=== PATIENT | male | born 1965 | race Caucasian/White ===

== ENCOUNTER → 2019-05-27 | Outpatient (CLI) | payer OTHER ==
[~2019-05-27] MED LIST: ACET1TAB43 PO; ACHD5005 PO; AMOX-355 PO; AMOX1TAB12 PO; AMOX500C2 PO; CELE-63 PO; CITA20TA9 PO; CLIN300C3 PO; CYCL10TA9; CYCL10TA9 PO; DICL75TA2; DICL75TA2 PO; DOCU100C37 PO; GABA-486; GABA-486 PO; GBPN600T PO; HYDR-34 PO; HYDR-700 PO; HYDR-757 PO; LORA10TA7 PO; METR-145 PO; METR500T PO; MULT1TAB69 PO; MUPI22OI2 TOP; OXYC-465 PO; PANT40TA3 PO; SULF1TAB35 PO; TOBR5DRO2 RIGHT EAR
--- NOTE | 2019-05-27 13:54 | Diagnostic Imaging Report ---
PROCEDURE: MRI lumbar spine. TECHNIQUE: Multiplanar, multisequence MRI of the lumbar spine was performed without contrast. INDICATION: Low back pain and right hip pain. Correlation is made with prior MRI of the lumbar spine from 02/05/2010. FINDINGS: There is straightening of the normal lumbar lordotic curvature. Minimal retrolisthesis of L3 on L4 and L4 on L5 is noted. Vertebral body heights are maintained. No acute compression fracture is identified. Significant degenerative disc disease is identified at the L3-L4 and L5-S1 levels. This has significantly progressed at L3-L4 since prior study from 2009. L3-L4 demonstrate significant Modic changes in the adjacent endplates. The conus is unremarkable at the L1-L2 level. T12-L1: Central canal is patent. Neural foramina are patent. L1-L2: Central canal is patent. There appears to be mild bilateral neural foraminal narrowing due to far lateral broad-based disc/osteophyte complex. L2-L3: Central canal is patent. Broad-based disc/osteophyte complex does result in [id number] bilateral neural foraminal narrowing. L3-L4: Broad-based disc/osteophyte complex indents the ventral thecal sac. There is ligamentous thickening. This results in fairly significant central canal stenosis. There is severe bilateral lateral recess stenosis. There is also severe left and moderate right neural foraminal stenosis. L4-L5: Broad-based disc/osteophyte complex flattens the ventral thecal sac resulting in moderate central canal stenosis. There is severe right and moderate left lateral recess stenosis. There is severe right and moderate left neural foraminal stenosis. Right-sided neural foraminal narrowing appears to be owing to broad-based disc/osteophyte complex. L5-S1: Broad-based disc/osteophyte complex indents the ventral thecal sac. Central canal is patent. There is severe bilateral lateral recess stenosis. There is also severe bilateral neural foraminal stenosis. Paraspinous tissues are unremarkable. IMPRESSION: Progression of lumbar spondylosis since 2009. Multilevel central canal, lateral recess and neural foraminal stenosis is identified, described level by level above. Dictated by: Dictated on workstation # [id number]
--- NOTE | 2019-05-27 16:42 | Diagnostic Imaging Report ---
PROCEDURE: MR imaging cervical spine without contrast. TECHNIQUE: Multiplanar, multisequence MR imaging of the cervical spine was performed without contrast. INDICATION: Neck pain. FINDINGS: The cervical spine is grossly normal. Vertebral body heights are well maintained. There is no marrow signal intensity abnormality. The prevertebral soft tissues are within normal limits. Posterior fossa is unremarkable. The visualized portions of the spinal cord are normal in signal intensity and morphology. At C2-C3 there is mild left uncovertebral joint hypertrophy with mild left neural foraminal encroachment. At C3-C4 there is some annular bulging and bilateral uncovertebral joint hypertrophy, right greater than left. There is mild spinal stenosis. There is moderate to severe right and [id number] left neural foraminal encroachment. At C4-C5 annular bulging and mild bilateral uncovertebral hypertrophy. There is slight effacement of the intrathecal sac and mild bilateral neural foraminal encroachment. At C5-C6 there is annular bulging and right uncovertebral hypertrophy. There is slight effacement of the intrathecal sac with mild to moderate right neural foraminal encroachment. At C6-C7 there is broad-based annular bulging and mild bilateral uncovertebral hypertrophy. There is mild spinal stenosis and mild bilateral neuroforaminal encroachment. At C7-T1 there is some annular bulging with slight effacement of the intrathecal sac and mild bilateral foraminal encroachment. IMPRESSION: Mild diffuse cervical spondylosis and degenerative disc disease as detailed above Dictated by: Dictated on workstation # [id number]
== END ==
LOC: RAD 12:12
PROVIDERS: ATTEND Nurse Practitioner
DX: M48.07 Spinal stenosis, lumbosacral region (principal); M48.03 Spinal stenosis, cervicothoracic region; M47.816 Spondylosis without myelopathy or radiculopathy, lumbar region; M51.17 Intervertebral disc disorders with radiculopathy, lumbosacral region; M50.13 Cervical disc disorder with radiculopathy, cervicothoracic region
CPT/HCPCS: 72141; 72148

== ENCOUNTER 2019-07-08 17:03 | Inpatient (IN) | payer OTHER ==
[~2019-07-08] VITALS: Ht 182.9 cm; Wt 71.1 kg
[2019-07-08 17:24] VITALS: BP 117/76
[2019-07-08] MEDS ORDERED: CATHETER FLUSH 10 ML SYR IV PRN (17:30)
[2019-07-08] MEDS: ENOXAPARIN 40 MG/0.4 ML (LOVENOX) SYR SC SCH (17:55)
[2019-07-08] MEDS: NS IV 1000 ML 1,000 ML IV SCH (17:56)
[2019-07-08 18:00] LABS: BASOPHILS # (AUTO) 0.1 10^3/uL (0.0-0.1); BASOPHILS % (AUTO) 2 % (0-10); EOSINOPHILS # (AUTO) 0.1 10^3/uL (0.0-0.3); EOSINOPHILS % (AUTO) 1 % (0-10); HEMATOCRIT 38 % (40-54); HEMOGLOBIN 13.7 G/DL (13.3-17.7); LYMPHOCYTES # (AUTO) 1.7 X 10^3 (1.0-4.0); LYMPHOCYTES % (AUTO) 23 % (12-44); MEAN CORPUSCULAR HEMOGLOBIN 32 PG (25-34); MEAN CORPUSCULAR HGB CONC 36 G/DL (32-36); MEAN CORPUSCULAR VOLUME 90 FL (80-99); MEAN PLATELET VOLUME 11.4 FL (7.4-10.4); MONOCYTES # (AUTO) 0.7 X 10^3 (0.0-1.0); MONOCYTES % (AUTO) 9 % (0-12); NEUTROPHILS # (AUTO) 4.9 X 10^3 (1.8-7.8); NEUTROPHILS % (AUTO) 66 % (42-75); PLATELET COUNT 88 10^3/uL (130-400); RED CELL DISTRIBUTION WIDTH 13.7 % (10.0-14.5); WHITE BLOOD COUNT 7.5 10^3/uL (4.3-11.0)
[2019-07-08 18:10] LABS: ALBUMIN 3.8 GM/DL (3.2-4.5); CHLORIDE 103 MMOL/L (98-107); POTASSIUM 4.3 MMOL/L (3.6-5.0); SODIUM 135 MMOL/L (135-145)
[2019-07-08 18:12] LABS: CALCIUM 8.4 MG/DL (8.5-10.1)
[2019-07-08 18:13] LABS: GLUCOSE 109 MG/DL (70-105); TOTAL PROTEIN 6.6 GM/DL (6.4-8.2)
[2019-07-08 18:14] LABS: CARBON DIOXIDE 20 MMOL/L (21-32)
[2019-07-08 18:15] LABS: BILIRUBIN,TOTAL 0.4 MG/DL (0.1-1.0)
[2019-07-08 18:16] LABS: ALKALINE PHOSPHATASE 216 U/L (40-136); CREATININE SERUM 1.22 MG/DL (0.60-1.30); GFR ESTIMATED > 60
[2019-07-08 18:17] LABS: BUN/CREATININE RATIO 10
[2019-07-08 18:19] LABS: ALANINE AMINOTRANSFERASE 120 U/L (0-55); CREATINE KINASE 45 U/L (30-200); ERYTHROCYTE SEDIMENTATION RATE 4 MM/HR (0-30)
[2019-07-08] MEDS ORDERED: PREG50CA2 PO (18:26)
[2019-07-08] MEDS ORDERED: guaiFENesin/CODEINE (ROBITUSSIN AC) 10ML UDC PO PRN (18:30)
[2019-07-08] MEDS ORDERED: CALCIUM CARBONATE 500 MG (TUMS) TAB.CHEW PO PRN (18:30)
[2019-07-08] MEDS ORDERED: MELATONIN 3 MG TABLET PO PRN (18:30)
[2019-07-08] MEDS ORDERED: DOCUSATE SODIUM 100 MG (COLACE) CAP PO PRN (18:30)
[2019-07-08] MEDS ORDERED: ONDANSETRON 4 MG (ZOFRAN) ORAL DISSOLVE TAB PO PRN (18:30)
[2019-07-08] MEDS ORDERED: LOPERAMIDE 2 MG (IMODIUM) TABLET PO PRN (18:30)
[2019-07-08] MEDS ORDERED: diphenhydrAMINE 25 MG TAB (BENADRYL) PO PRN (18:30)
[2019-07-08] MEDS: HYDROcodone/APAP 5 MG/325 MG (LORTAB) TAB PO PRN (18:59)
[2019-07-08] MEDS: cefTRIAXone FOR IV USE 1,000 MG in WATER (STERILE) FOR INJECTION 10 ML IV SCH (19:07)
[2019-07-08] MEDS: AZITHROMYCIN INJECTION 500 MG in NS (IVPB) 250 ML IV SCH (19:07)
--- NOTE | 2019-07-08 19:18 | Diagnostic Imaging Report ---
INDICATION: Fever, chills, and cough. Comparison made to prior study from 12/09/2014. FINDINGS: The diaphragms are flattened which suggests air trapping. No focal infiltrate demonstrated. There is no effusion. There is no pneumothorax. Heart size and mediastinal contours appear appropriate and pulmonary vascularity appears normal. No acute or suspicious osseous abnormality is demonstrated. IMPRESSION: 1. Diaphragmatic flattening suggests air trapping. Correlate for history of COPD. 2. No acute superimposed cardiopulmonary process evident. Dictated by: Dictated on workstation # [id number]
[2019-07-08] MEDS: ACETAMINOPHEN 500 MG TAB (TYLENOL) PO PRN (20:06)
[2019-07-08 20:11] VITALS: BP 102/62
[2019-07-08] MEDS: SENNA W/DOCUSATE (SENOKOT S) TABLET PO SCH (21:00)
[2019-07-08 21:06] VITALS: BP 102/62
[2019-07-08] MEDS ORDERED: RT-ALBUTEROL/IPRATROPIUM 3 ML (DUONEB) VIAL INH PRN (21:15)
[2019-07-09 00:01] VITALS: BP 100/62
[2019-07-09 00:09] LABS: BILIRUBIN,URINE NEGATIVE (NEGATIVE); CLARITY,URINE CLEAR; COLOR,URINE YELLOW; GLUCOSE, URINE (UA) NEGATIVE (NEGATIVE); KETONES,URINE 1+ (NEGATIVE); LEUKOCYTE ESTERASE ,URINE NEGATIVE (NEGATIVE); NITRITE,URINE NEGATIVE (NEGATIVE); PROTEIN,URINE TRACE (NEGATIVE)
[2019-07-09 00:16] LABS: BACTERIA,URINE NEGATIVE /HPF; SQUAMOUS EPITHELIAL CELL,UR 0-2 /HPF
[2019-07-09] MEDS: NS IV 1000 ML 1,000 ML IV SCH ×4 (02:07→20:01)
[2019-07-09 03:35] VITALS: BP 95/56
[2019-07-09] MEDS: ACETAMINOPHEN 500 MG TAB (TYLENOL) PO PRN ×2 (03:41→16:28)
[2019-07-09] MEDS: HYDROcodone/APAP 5 MG/325 MG (LORTAB) TAB PO PRN ×3 (03:41→20:02)
[2019-07-09 05:22] LABS: BASOPHILS # (AUTO) 0.2 10^3/uL (0.0-0.1); BASOPHILS % (AUTO) 3 % (0-10); EOSINOPHILS # (AUTO) 0.1 10^3/uL (0.0-0.3); EOSINOPHILS % (AUTO) 1 % (0-10); HEMATOCRIT 38 % (40-54); HEMOGLOBIN 13.5 G/DL (13.3-17.7); LYMPHOCYTES # (AUTO) 2.7 X 10^3 (1.0-4.0); LYMPHOCYTES % (AUTO) 34 % (12-44); MEAN CORPUSCULAR HEMOGLOBIN 32 PG (25-34); MEAN CORPUSCULAR HGB CONC 36 G/DL (32-36); MEAN CORPUSCULAR VOLUME 91 FL (80-99); MEAN PLATELET VOLUME 10.9 FL (7.4-10.4); MONOCYTES # (AUTO) 0.9 X 10^3 (0.0-1.0); MONOCYTES % (AUTO) 11 % (0-12); NEUTROPHILS # (AUTO) 4.1 X 10^3 (1.8-7.8); NEUTROPHILS % (AUTO) 52 % (42-75); PLATELET COUNT 78 10^3/uL (130-400); WHITE BLOOD COUNT 7.9 10^3/uL (4.3-11.0)
[2019-07-09 05:33] LABS: ALBUMIN 3.5 GM/DL (3.2-4.5); CHLORIDE 108 MMOL/L (98-107); POTASSIUM 4.3 MMOL/L (3.6-5.0); SODIUM 137 MMOL/L (135-145)
[2019-07-09 05:35] LABS: GLUCOSE 109 MG/DL (70-105)
[2019-07-09 05:37] LABS: BILIRUBIN,TOTAL 0.3 MG/DL (0.1-1.0); CARBON DIOXIDE 19 MMOL/L (21-32)
[2019-07-09 05:39] LABS: ALKALINE PHOSPHATASE 196 U/L (40-136); CREATININE SERUM 1.09 MG/DL (0.60-1.30); GFR ESTIMATED > 60
[2019-07-09 05:40] LABS: BUN/CREATININE RATIO 12
[2019-07-09 05:42] LABS: ALANINE AMINOTRANSFERASE 114 U/L (0-55)
[2019-07-09] MEDS: SENNA W/DOCUSATE (SENOKOT S) TABLET PO SCH ×2 (08:05→20:01)
[2019-07-09 08:10] VITALS: BP 111/66
--- NOTE | 2019-07-09 09:55 | Diagnostic Imaging Report ---
INDICATION: Dehydration, fever. TECHNIQUE: Two view chest 9:28 AM CORRELATION STUDY: None FINDINGS: The heart size, mediastinal configuration and pulmonary vasculature are within normal limits. The lungs are clear with no consolidating infiltrate. There is no significant pleural effusion or pneumothorax. Visualized osseous structures are unremarkable. IMPRESSION: 1. Negative for acute abnormality of the chest. Dictated by: Dictated on workstation # [id number]
[2019-07-09] MEDS: ONDANSETRON 4 MG/2 ML (SDV) Z0FRAN IVP PRN (11:49)
[2019-07-09 12:12] VITALS: BP 169/82
[2019-07-09] MEDS ORDERED: PROMETHAZINE INJ 25 MG/ML (PHENERGAN) AMP IM ONE (12:45)
--- NOTE | 2019-07-09 13:05 | Consultation - Surgery ---
History of Present Illness History of Present Illness Patient Consulted On(lavern/time) 07/09/19 13:04 Date Seen by Provider: July 09, 2019 Time Seen by Provider: 13:04 History of Present Illness Consult requested by Dr. Benoit for abdominal pain. Patient is a 54-year-old male who presented with several days of body ache headache and neck pain and nausea and vomiting. Patient states this is continued to worsen. Recent has abdominal pain in the epigastric region no radiation of pain. Patient has history of ulcers he states. Hasn't had any issues for about 4 years. Moderate to severe pain. He recently is taking ibuprofen but trying to limit. He has had cough and fever. Allergies and Home Medications Allergies Coded Allergies: No Known Drug Allergies (Unverified , 08/11/14) Home Medications Celecoxib 200 Mg Capsule, 200 MG PO DAILY, (Reported) Citalopram Hydrobromide 20 Mg Tablet, 40 MG PO DAILY, (Reported) TAKES 2 (20MG) TABLETS Hydroxyzine HCl 25 Mg Tablet, 25-50 MG PO QID PRN for ANXIETY, (Reported) Multivitamin 1 Each Tablet, 1 TAB PO DAILY, (Reported) Pregabalin 50 Mg Capsule, 50 MG PO BID Prescribed by: MIKE SHOEMAKER on 07/08/19 9626 Patient Home Medication List Home Medication List Reviewed: Yes Past Azvmhzf-Vhpngz-Bzagci Hx Patient Social History Alcohol Use: Denies Use Recreational Drug Use: Yes Drug of Choice: marijuana Type Used: Cigarettes Recent Foreign Travel: No Contact w/Someone Who Travel: No Recent Infectious Disease Expo: No Recent Hopitalizations: No Physical Abuse Screen: No Sexual Abuse: No Immunizations Up To Date Tetanus Booster (TDap): Less than 5yrs PED Vaccines UTD: No Date of Influenza Vaccine: Dec 06, 2014 Seasonal Allergies Seasonal Allergies: Yes Surgeries History of Surgeries: Yes (RIGHT WRIST ORTHOS SURGERY AND LEFT LEG CUCA) Surgeries: Angioplasty, Orthopedic Respiratory History of Respiratory Disorde: Yes Respiratory Disorders: COPD Cardiovascular History of Cardiac Disorders: No Neurological Neurological Disorders: Neuropathy Reproductive System Hx Reproductive Disorders: No Sexually Transmitted Disease: No HIV/AIDS: No Genitourinary History of Genitourinary Disor: Yes Genitourinary Disorders: Kidney Stones Gastrointestinal History of Gastrointestinal Di: Yes (5 YEARS AGO GI BLEED) Gastrointestinal Disorders: Gastrointestinal Bleed, Ulcer Musculoskeletal Musculoskeletal Disorders: Arthritis, Chronic Back Pain Endocrine History of Endocrine Disorders: No HEENT History of HEENT Disorders: No (BLIND IN RIGHT EYE) Loss of Vision: Right Hearing Impairment: Denies Cancer History of Cancer: No Psychosocial History of Psychiatric Problem: Yes Behavioral Health Disorders: Anxiety, PTSD, Depression Integumentary History of Skin or Integumenta: No Blood Transfusions History of Blood Disorders: No Adverse Reaction to a Blood Tr: No Family Medical History Significant Family History: No Pertinent Family Hx Family Medial History: Arthritis 19 MOTHER Asthma G8 BROTHER Cancer of mouth 19 FATHER Cardiovascular disease 19 FATHER Diabetes mellitus 19 FATHER G8 BROTHER Myocardial infarction 19 FATHER Review of Systems-General Constitutional: see HPI, fever Respiratory: cough Cardiovascular: see HPI; No chest pain Gastrointestinal: abdominal pain Genitourinary: No decreased output, No discharge Musculoskeletal: back pain Skin: No change in color, No change in hair/nails Psychiatric/Neurological: Denies Anxiety, Denies Depressed, Denies Emotional Problems Physical Exam-General Problems Physical Exam Vital Signs Vital Signs - First Documented 07/08/19 07/08/19 17:24 21:06 Temp 37.8 Pulse 86 Resp 16 B/P (MAP) 117/76 Pulse Ox 97 O2 Delivery Room Air FiO2 21 Capillary Refill : Less Than 3 Seconds General Appearance: mild distress, other (PARACENTESIS PROCEDURE NOTE) HEENT: PERRL/EOMI, normal ENT inspection Neck: full range of motion, supple Respiratory: chest non-tender, no respiratory distress, no accessory muscle use Cardiovascular: regular rate, rhythm Gastrointestinal: soft, tenderness (Epigastric) Rectal: deferred Back: no CVA tenderness Extremities: non-tender, normal inspection 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, no motor/sensory deficits, alert, normal mood/affect, oriented x 3 Skin: normal color, warm/dry Lymphatic: no adenopathy Data Review Labs Laboratory Tests 07/08/19 17:35: White Blood Count 7.5, Red Blood Count 4.25L, Hemoglobin 13.7, Hematocrit 38L, Mean Corpuscular Volume 90, Mean Corpuscular Hemoglobin 32, Mean Corpuscular Hemoglobin Concent 36, Red Cell Distribution Width 13.7, Platelet Count 88L, Mean Platelet Volume 11.4H, Neutrophils (%) (Auto) 66, Lymphocytes (%) (Auto) 23, Monocytes (%) (Auto) 9, Eosinophils (%) (Auto) 1, Basophils (%) (Auto) 2, Neutrophils # (Auto) 4.9, Lymphocytes # (Auto) 1.7, Monocytes # (Auto) 0.7, Eosinophils # (Auto) 0.1, Basophils # (Auto) 0.1, Erythrocyte Sedimentation Rate 4, Sodium Level 135, Potassium Level 4.3, Chloride Level 103, Carbon Dioxide Level 20L, Anion Gap 12, Blood Urea Nitrogen 12, Creatinine 1.22, Estimat G lomerular Filtration Rate > 60, BUN/Creatinine Ratio 10, Glucose Level 109H, Lactic Acid Level 0.94, Calcium Level 8.4L, Corrected Calcium 8.6, Total Bilirubin 0.4, Aspartate Amino Transf (AST/SGOT) 55H, Alanine Aminotransferase (ALT/SGPT) 120H, Alkaline Phosphatase 216H, Total Creatine Kinase 47, B-Type Natriuretic Peptide 16.4, Total Protein 6.6, Albumin 3.8, Procalcitonin 1.00H 07/08/19 20:55: Urine Color YELLOW, Urine Clarity CLEAR, Urine pH 6.0, Urine Specific Paxton 1.025H, Urine Protein TRACEH, Urine Glucose (UA) NEGATIVE, Urine Ketones 1+H, Urine Nitrite NEGATIVE, Urine Bilirubin NEGATIVE, Urine Urobilinogen 0.2, Urine Leukocyte Esterase NEGATIVE, Urine RBC (Auto) NEGATIVE, Urine RBC NONE, Urine WBC NONE, Urine Squamous Epithelial Cells 0-2, Urine Crystals NONE, Urine Bacteria NEGATIVE, Urine Casts NONE, Urine Mucus SMALLH, Urine Culture Indicated NO 07/09/19 05:08: White Blood Count 7.9, Red Blood Count 4.20L, Hemoglobin 13.5, Hematocrit 38L, Mean Corpuscular Volume 91, Mean Corpuscular Hemoglobin 32, Mean Corpuscular Hemoglobin Concent 36, Red Cell Distribution Width 14.0, Platelet Count 78L, Mean Platelet Volume 10.9H, Neutrophils (%) (Auto) 52, Lymphocytes (%) (Auto) 34, Monocytes (%) (Auto) 11, Eosinophils (%) (Auto) 1, Basophils (%) (Auto) 3, Neutrophils # (Auto) 4.1, Lymphocytes # (Auto) 2.7, Monocytes # (Auto) 0.9, Eosinophils # (Auto) 0.1, Basophils # (Auto) 0.2H, Sodium Level 137, Potassium Level 4.3, Chloride Level 108H, Carbon Dioxide Level 19L, Anion Gap 10, Blood Urea Nitrogen 13, Creatinine 1.09, Estimat Glomerular Filtration Rate > 60, BUN/Creatinine Ratio 12, Glucose Level 109H, Calcium Level 8.0L, Corrected Calcium 8.4L, Total Bilirubin 0.3, Aspartate Amino Transf (AST/SGOT) 64H, Alanine Aminotransferase (ALT/SGPT) 114H, Alkaline Phosphatase 196H, Total Protein 6.0L, Albumin 3.5, Procalcitonin 1.05H Assessment/Plan Assessment/Plan Assessment/Plan Epigastric abdominal pain nausea vomiting history of ulcer gastritis thrombocytopenia elevated liver enzymes IV Fluids clear liquid diet Protonix 40 mg IV BID Repeat labs in am If no improvement would consider CT scan abdomen pelvis Clinical Quality Measures DVT/VTE Risk/Contraindication: Risk Factor Score Per Nursin RFS Level Per Nursing on Admit: 4+=Very High AVEL GEE DO July 09, 2019 13:05
--- NOTE | 2019-07-09 13:58 | History & Physical-Hospitalist ---
History of Present Illness HPI/Chief Complaint CC: Lethargy with severe pain HPI: Notes from clinic visit yesterday: Scribed by Randi Faulkner Pt states that he feels like he has been hit by a bus. He started coming down with chills on Thursday night, and on Thursday work was awful and he was asleep by 6pm. The pt had to leave work early today due to the pain. He states that his head hurts, and he feels like his eyeballs are going to bulge out of his head. He is coughing up some phlegm. He is urinating okay and drinking a lot of water and Gatorade. He states he is dying of thirst. He states that he is not having any burning with urination. He states his back is killing him. He states that he has been taking Ibuprofen but cannot take a lot due to it bothering his stomach. His bowels are moving okay. He states he was feeling okay last night. The physical exam is stable, Lung CTAB. Pt has a coughing fit during the exam. Pt is having some slight soreness in his abdomen. Pt is extremely sore all up his back and neck and having head pain. I state that his lungs don't feel bad. He said his head feels like a concussion would feel. I state that our first option is if he is feeling that bad we could put him in the hospital overnight for some IV fluids and labs. Pt feels like he is dehydrated. I state that this would be a good option at this point because it seems like he is pretty desperate right now. The pt states that his eyes are sensitive to light. Pt will be admitted to 4th floor, start IV, CXR, and labs. I intended to DC patient home today but he is feeling too bad to DC today. Platelet count 88k noted and now he is having N/V and abdominal pain prompting consultation by Dr Ley. I will also reach out to Hematology. Has h/o severe gastritis and stomach ulcers s/p EGD DR Nayak several years ago. Patient does not drink alcohol and his who works in administration at [employer] brought him to office yesterday and to hospital. Source: patient Exam Limitations: clinical condition Date Seen 07/09/19 Time Seen by a Provider: 12:00 Attending Physician Aracely Healy DO PCP Aracely Healy DO Referring Physician Date of Admission July 08, 2019 at 17:11 Home Medications & Allergies Home Medications Reviewed patient Home Medication Reconciliation performed by pharmacy medication reconciliations test lab technician and/or nursing. Patients Allergies have been reviewed. Allergies Allergies Coded Allergies No Known Drug Allergies (Unverified08/11/14) Past Pyqqzjr-Ydyget-Uhxujm Hx Past Med/Social Hx: Reviewed Nursing Past Med/Soc Hx, Reviewed and Corrections made Patient Social History Marrital Status: Employed/Student: employed Alcohol Use: Denies Use Alcohol Beverage of Choice: Whiskey Recreational Drug Use: Yes Drug of Choice: marijuana Smoking Status: Current Everyday Smoker Type Used: Cigarettes Physical Abuse Screen: No Sexual Abuse: No Recent Foreign Travel: No Contact w/other who traveled: No Recent Hopitalizations: No Recent Infectious Disease Expo: No Immunizations Up To Date Tetanus Booster (TDap): Less than 5yrs Pediatric: No Date of Influenza Vaccine: Dec 06, 2014 Seasonal Allergies Seasonal Allergies: Yes Past Medical History Surgeries: Angioplasty, Orthopedic Respiratory: COPD, Pneumonia Currently Using CPAP: No Currently Using BIPAP: No Neurological: Neuropathy Reproductive: No Sexually Transmitted Disease: No HIV/AIDS: No Genitourinary: Kidney Stones Gastrointestinal: Gastrointestinal Bleed, Ulcer Musculoskeletal: Arthritis, Chronic Back Pain Loss of Vision: Right Hearing Impairment: Denies Psychosocial: Anxiety, PTSD, Depression History of Blood Disorders: No Adverse Reaction to Blood Alexander: No Family History Arthritis 19 MOTHER Asthma G8 BROTHER Cancer of mouth 19 FATHER Cardiovascular disease 19 FATHER Diabetes mellitus 19 FATHER G8 BROTHER Myocardial infarction 19 FATHER No Pertinent Family Hx Review of Systems Constitutional: see HPI, dizziness, malaise, weakness Respiratory: cough Musculoskeletal: muscle pain, muscle stiffness, muscle cramps, muscle twitching, muscle weakness, neck pain Physical Exam Physical Exam Vital Signs Vital Signs - First Documented 07/08/19 07/08/19 17:24 21:06 Temp 37.8 Pulse 86 Resp 16 B/P (MAP) 117/76 Pulse Ox 97 O2 Delivery Room Air FiO2 21 Capillary Refill : Less Than 3 Seconds Height, Weight, BMI Height: 6'0.00" Weight: 172lbs. 0.5oz. [id number]; 21.25 BMI Method:Stated General Appearance: WD/WN, Anxious, Moderate Distress, Thin, Other (vomiting) Eyes: Right Eye Normal Inspection, Right Eye PERRL HEENT: PERRL/EOMI, Normal ENT Inspection, Pharynx Normal, Moist Mucous Membranes Neck: Full Range of Motion, Normal Inspection, Non Tender Respiratory: Chest Non Tender, No Accessory Muscle Use, No Respiratory Distress, Decreased Breath Sounds Cardiovascular: Regular Rate, Rhythm, No Edema, No Gallop, No JVD, No Murmur, Normal Peripheral Pulses Gastrointestinal: Normal Bowel Sounds, No Organomegaly, No Pulsatile Mass, Non Tender, Soft Back: Normal Inspection, No CVA Tenderness, No Vertebral Tenderness Extremity: Normal Capillary Refill, Normal Inspection, Normal Range of Motion, Non Tender, No Calf Tenderness, No Pedal Edema Neurologic/Psychiatric: Alert, Oriented x3, No Motor/Sensory Deficits, Normal 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 Assessment/Plan Admission Diagnosis Assessment: Severe pain with dehydration Cough with negative CXR placed empirically on bronchitis treatment Elevated PCT of uncertain source Thrombocytopenia Severe N/V today prompting Dr Ley consultation h/o gastritis with stomach ulcer Smoker Severe osteoporosis hx Arthritis Depression Anxiety Plan: IV abx IVF Dr Ley consultation Dr Acosta consultation Monitor platelets Admission Status: Observation Diagnosis/Problems Diagnosis/Problems (1) Dehydration (2) Elevated procalcitonin (3) Smoker (4) COPD (chronic obstructive pulmonary disease) (5) Thrombocytopenia (6) Nausea & vomiting (7) Epigastric pain Status: Acute Clinical Quality Measures DVT/VTE Risk/Contraindication: Risk Factor Score Per Nursin RFS Level Per Nursing on Admit: 4+=Very High ARACELY HEALY DO July 09, 2019 13:58
[2019-07-09] MEDS: PANTOPRAZOLE 40 MG (PROTONIX) VIAL IV SCH ×2 (14:22→20:01)
[2019-07-09 16:47] VITALS: BP 127/67
[2019-07-09] MEDS: ENOXAPARIN 40 MG/0.4 ML (LOVENOX) SYR SC SCH (17:18)
[2019-07-09] MEDS: cefTRIAXone FOR IV USE 1,000 MG in WATER (STERILE) FOR INJECTION 10 ML IV SCH (17:18)
[2019-07-09] MEDS: AZITHROMYCIN INJECTION 500 MG in NS (IVPB) 250 ML IV SCH (17:19)
[2019-07-09 17:34] LABS: ABSOLUTE RETIC # 19 10e9/L (24-90); RETICULOCYTE % 0.45 % (0.50-2.40)
[2019-07-09 17:37] LABS: AMYLASE 57 U/L (25-125)
[2019-07-09 17:46] LABS: LIPASE 21 U/L (8-78)
[2019-07-09 18:00] LABS: BURR CELLS SLIGHT; CRENATED RBC SLIGHT; LYMPHOCYTES % (MANUAL) 17 %; MONOCYTES % (MANUAL) 17 %; NEUTROPHILS % (MANUAL) 61 %; REACTIVE LYMPHOCYTES 5 %; STOMATOCYTES SLIGHT
[2019-07-09 19:48] VITALS: BP_SYST 106; BP_SYST 109; BP_DIAS 57; BP_DIAS 68
[2019-07-09] MEDS: IBUPROFEN TABLET 200 MG TAB PO PRN (21:19)
[2019-07-10] MEDS: ACETAMINOPHEN 500 MG TAB (TYLENOL) PO PRN (00:07)
[2019-07-10] MEDS: HYDROcodone/APAP 5 MG/325 MG (LORTAB) TAB PO PRN ×2 (00:07→19:54)
[2019-07-10] MEDS: ALPRAZolam 0.25 MG (XANAX) TAB PO PRN ×2 (00:13→19:53)
[2019-07-10 00:15] VITALS: BP 94/55
[2019-07-10 04:00] VITALS: BP 95/57
[2019-07-10] MEDS: NS IV 1000 ML 1,000 ML IV SCH ×3 (04:12→19:53)
[2019-07-10 04:41] LABS: HEMOGLOBIN 12.5 G/DL (13.3-17.7); MEAN PLATELET VOLUME 11.5 FL (7.4-10.4); RED CELL DISTRIBUTION WIDTH 13.7 % (10.0-14.5); WHITE BLOOD COUNT 10.4 10^3/uL (4.3-11.0)
[2019-07-10 05:04] LABS: ALANINE AMINOTRANSFERASE 93 U/L (0-55); ALBUMIN 2.9 GM/DL (3.2-4.5); ALKALINE PHOSPHATASE 155 U/L (40-136); BILIRUBIN,TOTAL 0.5 MG/DL (0.1-1.0); BUN/CREATININE RATIO 12; CALCIUM 7.3 MG/DL (8.5-10.1); CARBON DIOXIDE 17 MMOL/L (21-32); CHLORIDE 106 MMOL/L (98-107); CREATININE SERUM 1.14 MG/DL (0.60-1.30); GFR ESTIMATED > 60; GLUCOSE 117 MG/DL (70-105); POTASSIUM 3.7 MMOL/L (3.6-5.0); SODIUM 134 MMOL/L (135-145); TOTAL PROTEIN 5.1 GM/DL (6.4-8.2)
[2019-07-10 08:03] VITALS: BP 112/68
[2019-07-10] MEDS: SENNA W/DOCUSATE (SENOKOT S) TABLET PO SCH ×2 (08:11→19:54)
[2019-07-10] MEDS: PANTOPRAZOLE 40 MG (PROTONIX) VIAL IV SCH ×2 (08:11→19:47)
[2019-07-10] MEDS: ONDANSETRON 4 MG/2 ML (SDV) Z0FRAN IVP PRN ×2 (09:37→18:31)
--- NOTE | 2019-07-10 10:46 | Progress Note - Hospitalist ---
Subjective HPI/CC On Admission Date Seen by Provider: July 10, 2019 Time Seen by Provider: 11:15 CC: Lethargy with severe pain HPI: Notes from clinic visit yesterday: Scribed by Randi Faulkner Pt states that he feels like he has been hit by a bus. He started coming down with chills on Thursday night, and on Thursday work was awful and he was asleep by 6pm. The pt had to leave work early today due to the pain. He states that his head hurts, and he feels like his eyeballs are going to bulge out of his head. He is coughing up some phlegm. He is urinating okay and drinking a lot of water and Gatorade. He states he is dying of thirst. He states that he is not having any burning with urination. He states his back is killing him. He states that he has been taking Ibuprofen but cannot take a lot due to it bothering his stomach. His bowels are moving okay. He states he was feeling okay last night. The physical exam is stable, Lung CTAB. Pt has a coughing fit during the exam. Pt is having some slight soreness in his abdomen. Pt is extremely sore all up his back and neck and having head pain. I state that his lungs don't feel bad. He said his head feels like a concussion would feel. I state that our first option is if he is feeling that bad we could put him in the hospital overnight for some IV fluids and labs. Pt feels like he is dehydrated. I state that this would be a good option at this point because it seems like he is pretty desperate right now. The pt states that his eyes are sensitive to light. Pt will be admitted to 4th floor, start IV, CXR, and labs. I intended to DC patient home today but he is feeling too bad to DC today. Platelet count 88k noted and now he is having N/V and abdominal pain prompting consultation by Dr Ley. I will also reach out to Hematology. Has h/o severe gastritis and stomach ulcers s/p EGD DR Nayak several years ago. Patient does not drink alcohol and his who works in administration at [employer] brought him to office yesterday and to hospital. Subjective/Events-last exam Patient feels a bit better Kadeem Acosta and Jil rounded on him with me at the same time Doxy will be added since he does admit to tick bites and tick panel ordered No fever Maintained on bronchitis treatment Platelets 66k Pain improved all over his body Review of Systems General: Fatigue Gastrointestinal: Nausea, Vomiting Focused Exam Lactate Level 07/08/19 17:35: Lactic Acid Level 0.94 Objective Exam Vital Signs Vital Signs Date Time Temp Pulse Resp B/P (MAP) Pulse Ox O2 Delivery O2 Flow Rate FiO2 07/10/19 12:15 92 07/10/19 11:54 37.1 18 113/72 (86) 97 Room Air 07/08/19 21:06 21 Capillary Refill : Less Than 3 SecondsLess Than 3 Seconds General Appearance: No Apparent Distress, WD/WN, Chronically ill Respiratory: Chest Non Tender, Lungs Clear, Normal Breath Sounds, No Accessory Muscle Use, No Respiratory Distress Cardiovascular: Regular Rate, Rhythm, No Edema, No Gallop, No JVD, No Murmur, Normal Peripheral Pulses Neurologic/Psychiatric: Alert, Oriented x3, No Motor/Sensory Deficits, Normal M ood/Affect Results/Procedures Lab Laboratory Tests 07/10/19 04:31 Patient resulted labs reviewed. Assessment/Plan Assessment and Plan Assess & Plan/Chief Complaint Assessment: Severe pain with dehydration improving Cough with negative CXR placed empirically on bronchitis treatment Elevated PCT of uncertain source Thrombocytopenia Severe N/V yesterday prompting Dr Ley consultation he added PPI and Carafate h/o gastritis with stomach ulcer Smoker Severe osteoporosis hx Arthritis Depression Anxiety Tick bites placed on Doxy and ordered tick panel per Dr Acosta Plan: IV abx and add Doxy IV due to high risk for stomach upset in this patient with Doxy PO IVF Dr Ley consultation Dr Acosta consultation Monitor platelets Diagnosis/Problems Diagnosis/Problems (1) Dehydration (2) Elevated procalcitonin (3) Smoker (4) COPD (chronic obstructive pulmonary disease) (5) Thrombocytopenia (6) Nausea & vomiting (7) Epigastric pain Status: Acute Clinical Quality Measures DVT/VTE Risk/Contraindication: Risk Factor Score Per Nursin RFS Level Per Nursing on Admit: 4+=Very High TOYA HEALY DO July 10, 2019 10:46
[2019-07-10 11:54] VITALS: BP 113/72
[2019-07-10] MEDS: SUCRALFATE 1 GM (CARAFATE) TAB PO SCH ×3 (12:06→19:53)
[2019-07-10] MEDS: DOXYCYCLINE INJECTION 100 MG in NS (IVPB) 100 ML IV SCH ×2 (12:07→20:03)
--- NOTE | 2019-07-10 13:41 | CONSULTATION REPORT ---
DATE OF SERVICE: 07/10/2019 The patient is admitted to room 419. REFERRING AND PRIMARY PHYSICIAN: Aracely Benoit DO. IMPRESSION: 1. A 54-year-old male admitted with fever, myalgias and cough. 2. New onset thrombocytopenia that is worsening. 3. Elevated liver function studies, also of new onset. 4. History of multiple tick bites within the past two to three weeks. RECOMMENDATIONS: 1. Obtain a tick-borne panel. 2. Start the patient on doxycycline 100 mg b.i.d. 3. Monitor blood counts and liver panel serially. 4. Rule out other viral illnesses as appropriate. 5. Continue PPI and Carafate because of abdominal symptoms and previous history of gastric ulcers. BRIEF HISTORY: The patient is a 54-year-old male with a few-day history of fever, myalgias and cough. As he was continuing to become sick, he was evaluated in the office and admitted directly to the hospital. Admission labs showed a worsening thrombocytopenia of new onset and a hematology consultation was requested. The patient gave history of multiple tick bites within the last 2 to 3 weeks. He denied any of his coworkers being sick within the last few weeks. Nobody at home has been sick the same time. Also complained of significant headaches and abdominal discomfort. PAST MEDICAL HISTORY: COPD and has had coronary artery disease requiring angioplasty. He has had a peptic ulcer disease with GI bleeding four to five years ago requiring hospitalization, osteoarthritis involving major joints. He has history of PTSD with anxiety and depression. SOCIAL HISTORY: The patient is and lives in [facility]. He has two adult sons, one of whom lives in [place] and one in [place], [place]. 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 Does have some exposure to paint fumes etc. He smokes 2 packs of cigarettes daily for more than 35 years. He uses alcohol occasionally, but has not been using alcohol for some time. He uses marijuana occasionally. FAMILY HISTORY: Significant for his father, who had coronary artery disease with NV, diabetes mellitus and oral cancer. His brothers have diabetes mellitus and asthma. No other hematological or oncological problems in the family that the patient knows of. PHYSICAL EXAMINATION: GENERAL: Today showed, a middle-aged male looking older than stated age, awake and oriented, in moderate distress due to headaches and myalgias. VITAL SIGNS: Temperature was 36.4, pulse rate of 89, respirations 18, blood pressure 112/68 with oxygen saturation of 95% on room air. At the time of admission, he was febrile with a T-max of 39.2 degrees centigrade. HEENT: Normocephalic, extraocular muscles are intact, conjunctivae pink and oral mucosa moist. NECK: Supple, with no JVD. No cervical, supraclavicular or axillary lymphadenopathy palpable. CHEST: Symmetrical. LUNGS: With slightly decreased breath sounds bilaterally without any wheezes or rales. CARDIOVASCULAR: Regular in rate and rhythm. No murmurs or gallops heard. ABDOMEN: Soft with a mild tenderness in the epigastric area. No hepatosplenomegaly or other masses palpable. EXTREMITIES: Showed no edema. NEUROLOGIC: Grossly intact without focal motor deficits. LABORATORY DATA: CBC done today showed WBC 10.4 and hemoglobin 12.5 with platelet count of 66,000. On 07/08/2019, his CBC showed white count of 7.5 with a hemoglobin of 13.7 and platelet count of 88,000 with normal automated differential count. CMP done today showed relatively normal electrolytes. BUN was 14 and creatinine 1.14 with GFR more than 60 mL per minute. AST was elevated at 52, ALT 93 and alkaline phosphatase 155,000. LDH done yesterday was elevated at 355. Albumin was 2.9, but was in the normal range at the time of admission. Previous CBCs from 12/2015 were normal with a platelet count of 224,000. Blood cultures done at the time of admission were unremarkable. Chest x-ray done at the time of admission showed diaphragmatic flattening with no acute superimposed cardiopulmonary process. Thank you for allowing me to participate in this patient's care. I will follow the patient with you and make appropriate recommendations. Job ID: [id number] DocumentID: [id number] Dictated Date: 07/10/2019 11:26:31 Rawhide Trimmer Date: 07/10/2019 13:40:18 Dictated By: KECIA PETERSON MD
[2019-07-10] MEDS: IBUPROFEN TABLET 200 MG TAB PO PRN (13:59)
--- NOTE | 2019-07-10 14:43 | Progress Note - Surgery ---
Subjective Date Seen by a Provider: July 10, 2019 Time Seen by a Provider: 11:31 Subjective/Events-last exam Patient still with head/neck pain. Abdomen starting to feel a little better. Less nausea and vomiting. Fever over night. No shortness of breath or chest pain. Focused Exam Lactate Level 07/08/19 17:35: Lactic Acid Level 0.94 Objective Exam Vital Signs Date Time Temp Pulse Resp B/P (MAP) Pulse Ox O2 Delivery O2 Flow Rate FiO2 07/10/19 12:15 92 07/10/19 11:54 37.1 90 18 113/72 (86) 97 Room Air 07/10/19 08:03 36.4 89 18 112/68 (83) 95 Room Air 07/10/19 07:15 Trach Collar 07/10/19 07:00 91 07/10/19 04:00 37.2 88 20 95/57 (70) 92 Room Air 07/10/19 01:00 87 07/10/19 00:15 37.6 86 20 94/55 (68) 92 Room Air 07/10/19 00:07 37.3 07/09/19 22:18 38.0 07/09/19 22:18 38.0 07/09/19 21:19 38.9 07/09/19 21:05 38.9 07/09/19 21:05 38.9 07/09/19 20:02 39.2 07/09/19 20:00 96 Room Air 07/09/19 19:48 39.2 106 20 109/57 (74) 96 Room Air 07/09/19 19:00 103 07/09/19 16:56 38.0 07/09/19 16:47 38.9 100 20 127/67 (87) 93 Room Air 07/09/19 16:28 38.9 I & O 07/10/19 07:00 Intake Total 5870 ml Output Total 1550 ml Balance 4320 ml Capillary Refill : Less Than 3 SecondsLess Than 3 Seconds General Appearance: WD/WN, Anxious, Thin HEENT: PERRL/EOMI, Normal ENT Inspection, Pharynx Normal, Moist Mucous Membranes Neck: Full Range of Motion, Normal Inspection, Non Tender Respiratory: Chest Non Tender, No Accessory Muscle Use, No Respiratory Distress, Decreased Breath Sounds Cardiovascular: Regular Rate, Rhythm, No Edema, No Gallop, No JVD, No Murmur, Normal Peripheral Pulses Gastrointestinal: soft, tenderness (minimal epigastric, less compared to yesterday.) Extremity: Normal Capillary Refill, Normal Inspection, Normal Range of Motion, Non Tender, No Calf Tenderness, No Pedal Edema Neurologic/Psychiatric: Alert, Oriented x3, No Motor/Sensory Deficits, Normal Mood/Affect, service desk lead II-XII Norm as Tested Skin: Normal Color, Warm/Dry Lymphatic: No Adenopathy Results Lab Laboratory Tests 07/10/19 04:31: White Blood Count 10.4, Red Blood Count 3.95L, Hemoglobin 12.5L, Hematocrit 36L, Mean Corpuscular Volume 90, Mean Corpuscular Hemoglobin 32, Mean Corpuscular Hemoglobin Concent 35, Red Cell Distribution Width 13.7, Platelet Count 66L, Estee n Platelet Volume 11.5H, Sodium Level 134L, Potassium Level 3.7, Chloride Level 106, Carbon Dioxide Level 17L, Anion Gap 11, Blood Urea Nitrogen 14, Creatinine 1.14, Estimat Glomerular Filtration Rate > 60, BUN/Creatinine Ratio 12, Glucose Level 117H, Calcium Level 7.3L, Corrected Calcium 8.2L, Total Bilirubin 0.5, Aspartate Amino Transf (AST/SGOT) 52H, Alanine Aminotransferase (ALT/SGPT) 93H, Alkaline Phosphatase 155H, Total Protein 5.1L, Albumin 2.9L, Procalcitonin 3.15H 07/10/19 11:49: Microbiology 07/08/19 Blood Culture - Preliminary, Resulted No growth Assessment/Plan Assessment/Plan Assessment/Plan Epigastric abdominal pain nausea vomiting history of ulcer gastritis thrombocytopenia elevated liver enzymes IV Fluids clear liquid diet Protonix 40 mg IV BID Carafate Repeat labs in am Abdomen improving Tick panel Clinical Quality Measures DVT/VTE Risk/Contraindication: Risk Factor Score Per Nursin RFS Level Per Nursing on Admit: 4+=Very High AVEL GEE DO July 10, 2019 14:43
[2019-07-10 16:30] VITALS: BP 101/55
[2019-07-10] MEDS: ENOXAPARIN 40 MG/0.4 ML (LOVENOX) SYR SC SCH (16:31)
[2019-07-10] MEDS: AZITHROMYCIN INJECTION 500 MG in NS (IVPB) 250 ML IV SCH (17:25)
[2019-07-10] MEDS: cefTRIAXone FOR IV USE 1,000 MG in WATER (STERILE) FOR INJECTION 10 ML IV SCH (17:25)
[2019-07-10] MEDS: KETOROLAC 30 MG/ML VIAL IVP PRN (19:48)
[2019-07-10 20:25] VITALS: BP 102/85
[2019-07-11] MEDS: fentaNYL INJECTION 100 MCG/2 ML AMP IVP PRN ×3 (00:14→21:12)
[2019-07-11 00:15] VITALS: BP 115/65
[2019-07-11] MEDS: ACETAMINOPHEN 500 MG TAB (TYLENOL) PO PRN ×2 (00:22→17:10)
[2019-07-11] MEDS: IBUPROFEN TABLET 200 MG TAB PO PRN ×2 (00:22→22:30)
[2019-07-11 04:29] VITALS: BP 104/78
[2019-07-11] MEDS: HYDROcodone/APAP 5 MG/325 MG (LORTAB) TAB PO PRN ×3 (04:32→17:15)
[2019-07-11] MEDS: NS IV 1000 ML 1,000 ML IV SCH (04:32)
[2019-07-11] MEDS: SUCRALFATE 1 GM (CARAFATE) TAB PO SCH ×4 (04:32→21:03)
[2019-07-11 05:24] LABS: BASOPHILS # (AUTO) 0.1 10^3/uL (0.0-0.1); BASOPHILS % (AUTO) 1 % (0-10); EOSINOPHILS % (AUTO) 0 % (0-10); HEMATOCRIT 33 % (40-54); HEMOGLOBIN 11.9 G/DL (13.3-17.7); LYMPHOCYTES # (AUTO) 1.6 X 10^3 (1.0-4.0); LYMPHOCYTES % (AUTO) 16 % (12-44); MEAN CORPUSCULAR HEMOGLOBIN 32 PG (25-34); MEAN CORPUSCULAR HGB CONC 36 G/DL (32-36); MEAN CORPUSCULAR VOLUME 89 FL (80-99); MEAN PLATELET VOLUME 11.7 FL (7.4-10.4); MONOCYTES # (AUTO) 0.6 X 10^3 (0.0-1.0); MONOCYTES % (AUTO) 6 % (0-12); NEUTROPHILS # (AUTO) 7.4 X 10^3 (1.8-7.8); NEUTROPHILS % (AUTO) 77 % (42-75); PLATELET COUNT 68 10^3/uL (130-400); RED CELL DISTRIBUTION WIDTH 14.1 % (10.0-14.5); WHITE BLOOD COUNT 9.5 10^3/uL (4.3-11.0)
[2019-07-11 05:38] LABS: ALBUMIN 2.8 GM/DL (3.2-4.5); CHLORIDE 108 MMOL/L (98-107); POTASSIUM 3.5 MMOL/L (3.6-5.0); SODIUM 135 MMOL/L (135-145)
[2019-07-11 05:39] LABS: CALCIUM 7.4 MG/DL (8.5-10.1)
[2019-07-11 05:40] LABS: GLUCOSE 127 MG/DL (70-105); TOTAL PROTEIN 4.8 GM/DL (6.4-8.2)
[2019-07-11 05:41] LABS: CARBON DIOXIDE 19 MMOL/L (21-32)
[2019-07-11 05:42] LABS: BILIRUBIN,TOTAL 0.5 MG/DL (0.1-1.0)
[2019-07-11 05:44] LABS: ALKALINE PHOSPHATASE 183 U/L (40-136); CREATININE SERUM 1.01 MG/DL (0.60-1.30); GFR ESTIMATED > 60
[2019-07-11 05:45] LABS: BUN/CREATININE RATIO 12
[2019-07-11 05:47] LABS: ALANINE AMINOTRANSFERASE 78 U/L (0-55)
[2019-07-11 08:00] VITALS: BP 104/66
[2019-07-11] MEDS: SENNA W/DOCUSATE (SENOKOT S) TABLET PO SCH ×2 (08:24→21:03)
[2019-07-11] MEDS: DOXYCYCLINE INJECTION 100 MG in NS (IVPB) 100 ML IV SCH ×2 (08:40→21:03)
[2019-07-11] MEDS: PANTOPRAZOLE 40 MG (PROTONIX) VIAL IV SCH ×2 (08:40→21:03)
[2019-07-11] MEDS ORDERED: CYCL10TA9 PO (09:36)
[2019-07-11] MEDS ORDERED: PREG50CA65 PO (09:36)
[2019-07-11] MEDS ORDERED: LEVO5TAB28 PO (09:37)
--- NOTE | 2019-07-11 10:13 | NUR ---
SPOKE WITH THE PT AND WENT THRU THE EXT MED HISTORY TO COMPLETE THE MED REC ALL MEDICATIONS LISTED ON THE EXT MED HISTORY AND PT WAS ABLE TO TELL ME HOW/WHEN HE TAKES EACH- ALL HIS INFORMATION MATCHED THE EXT MED HISTORY. OTC MEDS: ELIZABETH SANTAMARIA
--- NOTE | 2019-07-11 10:52 | Progress Note - Hospitalist ---
Subjective HPI/CC On Admission Date Seen by Provider: July 11, 2019 Time Seen by Provider: 10:30 CC: Lethargy with severe pain HPI: Notes from clinic visit yesterday: Scribed by Randi Faulkner Pt states that he feels like he has been hit by a bus. He started coming down with chills on Thursday night, and on Thursday work was awful and he was asleep by 6pm. The pt had to leave work early today due to the pain. He states that his head hurts, and he feels like his eyeballs are going to bulge out of his head. He is coughing up some phlegm. He is urinating okay and drinking a lot of water and Gatorade. He states he is dying of thirst. He states that he is not having any burning with urination. He states his back is killing him. He states that he has been taking Ibuprofen but cannot take a lot due to it bothering his stomach. His bowels are moving okay. He states he was feeling okay last night. The physical exam is stable, Lung CTAB. Pt has a coughing fit during the exam. Pt is having some slight soreness in his abdomen. Pt is extremely sore all up his back and neck and having head pain. I state that his lungs don't feel bad. He said his head feels like a concussion would feel. I state that our first option is if he is feeling that bad we could put him in the hospital overnight for some IV fluids and labs. Pt feels like he is dehydrated. I state that this would be a good option at this point because it seems like he is pretty desperate right now. The pt states that his eyes are sensitive to light. Pt will be admitted to 4th floor, start IV, CXR, and labs. I intended to DC patient home today but he is feeling too bad to DC today. Platelet count 88k noted and now he is having N/V and abdominal pain prompting consultation by Dr Ley. I will also reach out to Hematology. Has h/o severe gastritis and stomach ulcers s/p EGD DR Nayak several years ago. Patient does not drink alcohol and his who works in administration at [employer] brought him to office yesterday and to hospital. Subjective/Events-last exam Pt doing pretty well Will DC telemetry Will heplock IV fluids since he is drinking a great deal PT will be consulted to get him up and around Overall no nausea and vomiting and Doxycycline is well tolerated No pain is reported other than his chronic arthritis pain Review of Systems General: Fatigue Neurological: Weakness Focused Exam Lactate Level Objective Exam Vital Signs Vital Signs Date Time Temp Pulse Resp B/P (MAP) Pulse Ox O2 Delivery O2 Flow Rate FiO2 07/11/19 19:43 37.6 76 18 102/62 (75) 98 Room Air 07/11/19 18:21 95 Capillary Refill : NONELess Than 3 Seconds General Appearance: No Apparent Distress, WD/WN, Chronically ill Respiratory: Chest Non Tender, Lungs Clear, Normal Breath Sounds, No Accessory Muscle Use, No Respiratory Distress Cardiovascular: Regular Rate, Rhythm, No Edema, No Gallop, No JVD, No Murmur, N ormal Peripheral Pulses Neurologic/Psychiatric: Alert, Oriented x3, No Motor/Sensory Deficits, Normal Mood/Affect Results/Procedures Lab Laboratory Tests 07/11/19 05:00 Patient resulted labs reviewed. Assessment/Plan Assessment and Plan Assess & Plan/Chief Complaint Assessment: Severe pain with dehydration improving Cough with negative CXR placed empirically on bronchitis treatment Elevated PCT of uncertain source Thrombocytopenia Severe N/V yesterday prompting Dr Ley consultation he added PPI and Carafate h/o gastritis with stomach ulcer Smoker Severe osteoporosis hx Arthritis Depression Anxiety Tick bites placed on Doxy and ordered tick panel per Dr Acosta Plan: IV abx and add Doxy IV due to high risk for stomach upset in this patient with Doxy PO IVF heplock Dr Ley consultation Dr Acosta consultation Monitor platelets PT DC home tomorrow Diagnosis/Problems Diagnosis/Problems (1) Dehydration (2) Elevated procalcitonin (3) Smoker (4) COPD (chronic obstructive pulmonary disease) (5) Thrombocytopenia (6) Nausea & vomiting (7) Epigastric pain Status: Acute Clinical Quality Measures DVT/VTE Risk/Contraindication: Risk Factor Score Per Nursin RFS Level Per Nursing on Admit: 4+=Very High TOYA HEALY DO July 11, 2019 10:52
[2019-07-11] MEDS: KETOROLAC 30 MG/ML VIAL IVP PRN (11:43)
[2019-07-11 12:00] VITALS: BP 110/70
--- NOTE | 2019-07-11 13:41 | NUR ---
RD ASSESSMENT PMHx: COPD; pneumonia; GI Bleed; gastritis PT INTERACTION: Pt was awake and pleasant during nutrition assessment. Pt states current appetite is so-so and has been this way for the last 3-4 days. Note avg PO intake 15% x5meal, per chart review. Pt states following a regular diet at home, and has some issues swallowing ("sometimes my throat hurts"), and that he has dentures. Pt states recent issues with nausea and constipation. Note last BM was 07/10 and pt currently on bowel regimen of senna BID, per chart review. Pt states recent 10# wt loss x1week. Note unable to determine recent wt hx, per chart review. ABNORMAL NUTRITION-RELATED LAB VALUES LOW: K 3.5; Ca 8.4; Pro 4.8; alb 2.8 HIGH: Cl 108; glu 127; AST 42; ALT 78; alkphos 183 Est. kcal needs: 5231-9384 kcal | 25-30 kcal/kg Est. Pro needs: 75-71 g Pro | 0.8-1.0 g Pro/kg PES STATEMENT: Inadequate oral intake (NI-2.1) related to loss of appetite | nausea | constipation as evidenced by pt interview | avg PO intake 25% x5meal INTERVENTION: Continue with current diet order of Clear Liquid diet. Add Ensure Clear (vary) to meals TID, for increased kcal intake. Provides 250 kcal and 8 g Pro per serving. Encouraged pt to eat when able. Will continue to follow and reassess as pt needs, intake, and status change. MONITOR/EVALUATE: PO Intake; Plan of Care; Hydration Status; Weight Status; Lab Values Little Berger, , RD, LD
--- NOTE | 2019-07-11 14:46 | Physical Therapy Evaluation ---
PT Evaluation-General Medical Diagnosis Admission Date July 10, 2019 at 10:46 Medical Diagnosis: dehydration Onset Date: July 10, 2019 Therapy Diagnosis Therapy Diagnosis: weakness/debility Height/Weight Height (Feet): 6 Height (Inches): 0.00 Weight (Pounds): 172 Weight (Ounces): 0.5 Precautions Precautions/Isolations: Standard Precautions Referral Physician: Kaycee Reason for Referral: Evaluation/Treatment Medical History Pertinent Medical History: COPD, Neuropathy, Smoking Additional Medical History PTSD/ulcers Current History Admit secondary to lethargy with severe pain and [place] Social History Home: Single Level Current Living Status: Spouse Prior Prior Level of Function SCALE: Activities may be completed with or without assistive devices. 9-Pwuwtbztgy-yolaxdz completes the activity by him/herself with no assistance from a helper. 5-Set-up or Clean-up Assistance-helper sets up or cleans up; patient completes activity. [place] assists only prior to or following the activity. 4-Supervision or Touching Assistance-helper provides verbal cues and/or touching/steadying and/or contact guard assistance as patient completes activity. Assistance may be provided throughout the activity or intermittently. 3-Partial/Moderate Assistance-helper does LESS THAN HALF the effort. [place] li fts, holds or supports trunk or limbs, but provides less than half the effort. 2-Substantial/Maximal Assistance-helper does MORE THAN HALF the effort. [place] lifts or holds trunk or limbs and provides more than half the effort. 6-Vwzeztycl-rxlctq does ALL the effort. Patient does none of the effort to complete the activity. Or, the assistance of 2 or more helpers is required for the patient to complete the activity. If activity was not attempted, code reason: 7-Patient Refused. 9-Not Applicable-not attempted and the patient did not perform the activity before the current illness, exacerbation or injury. 10-Not Attempted due to Environmental Limitations-(lack of equipment, weather restraints, etc.). 88-Not Attempted due to Medical Conditions or Safety Concerns. Bed Mobility: 6 Transfers (B,C,W/C): 6 Gait: 6 Stairs: 6 Indoor Mobility (Ambulation): Independent Stairs: Independent Prior Devices Use: None PT Evaluation-Current Subjective Patient reports he is feeling better and agrees to PT. Objective Patient Orientation: Normal For Age ROM/Strength ROM Lower Extremities bilateral LE WFL Strength Lower Extremities 5/5 grossly bilateral LE Integumentary/Posture Integumentary refer to nursing notes Bowel Incontinence: No Bladder Incontinence: No Posture WFL Neuromuscular (Tone, Coordination, Reflexes) grossly intact Sensory Vision: Functional Hearing: Functional Sensation Right Lower Extremit: Impaired Sensation Left Lower Extremity: Impaired Transfers Roll Left to Right (QC): 6 Sit to Lying (QC): 6 Lying to Sitting/Side of Bed(Q: 6 Sit to Stand (QC): 6 Chair/Ppo-lq-Bubpq Xfer(QC): 6 Toilet Transfer (QC): 6 Gait Does the Patient Walk?: Yes Mode of Locomotion: Walk Anticipated Mode of Locomotion: Walk Walk 10 feet (QC): 6 Walk 50 ft with 2 Turns(QC): 6 Walk 150 ft (QC): 6 Distance: 400' Gait Assistive Device: None Balance Sitting Static: Normal Sitting Dynamic: Normal Standing Static: Normal Standing Dynamic: Normal Assessment/Needs 54 y.o. male, is currently at [facility] with all gross motor skills safely and does not require skilled therapy intervention. Rehab Potential: Good PT Plan Treatment/Plan Treatment Plan: Discontinue PT, goals met Treatment Duration: July 11, 2019 Frequency: 1 time per week Estimated Hrs Per Day: .25 hour per day Patient and/or Family Agrees t: Yes Time/GCodes Time In: 1409 Time Out: 1419 Total Billed Treatment Time: 10 Total Billed Treatment 1 visit EVLowC 10 min MALINI HAMMER PT July 11, 2019 14:46
[2019-07-11 16:48] VITALS: BP 112/62
[2019-07-11] MEDS: ENOXAPARIN 40 MG/0.4 ML (LOVENOX) SYR SC SCH (17:09)
--- NOTE | 2019-07-11 17:58 | NUR ---
PATIENT HAD A TEMPERATURE OF 37.8 AND IS NOW 37.4 WHICH IS TRENDING DOWN. THIS RN WILL CONT TO MONITOR THIS PATIENT THROUGHOUT THE REMAINDER OF THIS SHIFT.
[2019-07-11] MEDS: cefTRIAXone FOR IV USE 1,000 MG in WATER (STERILE) FOR INJECTION 10 ML IV SCH (18:07)
[2019-07-11] MEDS: AZITHROMYCIN INJECTION 500 MG in NS (IVPB) 250 ML IV SCH (18:07)
--- NOTE | 2019-07-11 18:07 | Progress Note ---
Standard Progress Note Progress Notes/Assess & Plan Date Seen by a Provider: July 11, 2019 Time Seen by a Provider: 18:04 Progress/Assessment & Plan 54 year-old male admitted with fever, fatigue, myalgias etc. and found to have elevated liver function studies and worsening thrombocytopenia. Gave history of tick bites 2-3 weeks ago. Started on doxycycline yesterday. Platelets have stabilized today. Patient feels better clinically but is still very fatigued. Low-grade temperature this afternoon. Continue current treatment and if improved tomorrow, may change doxycycline to oral. Repeat lab work in a.m. Will follow patient with you. KECIA PETERSON July 11, 2019 18:07
[2019-07-11 19:43] VITALS: BP 102/62
--- NOTE | 2019-07-11 22:01 | Progress Note - Surgery ---
Subjective Date Seen by a Provider: July 11, 2019 Time Seen by a Provider: 18:30 Subjective/Events-last exam Feeling better some today. Abdominal pain less in epigastric area. Slight nausea, no emesis. Able to keep liquids down. Still with headache/neck pain. Fatigued. No new complaints. Low grade fever. Objective Exam Vital Signs Date Time Temp Pulse Resp B/P (MAP) Pulse Ox O2 Delivery O2 Flow Rate FiO2 07/11/19 19:43 37.6 76 18 102/62 (75) 98 Room Air 07/11/19 18:21 Room Air 95 07/11/19 17:10 37.6 07/11/19 16:48 37.8 89 18 112/62 (79) 98 Room Air 07/11/19 12:00 36.9 90 18 110/70 (83) 98 Room Air 07/11/19 08:00 37.3 96 20 104/66 (79) 97 Room Air 07/11/19 08:00 97 Room Air 07/11/19 07:06 Room Air 07/11/19 07:00 87 07/11/19 05:33 36.7 07/11/19 04:32 36.7 07/11/19 04:29 36.7 88 20 104/78 (87) 100 Room Air 07/11/19 01:41 37.9 07/11/19 01:41 37.9 07/11/19 01:00 99 07/11/19 00:15 39.0 116 20 115/65 (82) Room Air 07/11/19 00:14 38.2 I & O 07/11/19 07:00 Intake Total 2410 ml Output Total 1650 ml Balance 760 ml Capillary Refill : NONELess Than 3 Seconds General Appearance: No Apparent Distress, WD/WN, Chronically ill HEENT: PERRL/EOMI, Normal ENT Inspection, Pharynx Normal, Moist Mucous Membranes Neck: Full Range of Motion, Normal Inspection, Non Tender Respiratory: Chest Non Tender, No Accessory Muscle Use, No Respiratory Distress Cardiovascular: Regular Rate, Rhythm, Normal Peripheral Pulses Gastrointestinal: soft, tenderness (Epigastric minimal today) Extremity: Normal Capillary Refill, Normal Inspection, Normal Range of Motion, Non Tender, No Calf Tenderness, No Pedal Edema Neurologic/Psychiatric: Alert, Oriented x3, No Motor/Sensory Deficits, Normal Mood/Affect Skin: Normal Color, Warm/Dry Lymphatic: No Adenopathy Results Lab Laboratory Tests 07/11/19 05:00: White Blood Count 9.5, Red Blood Count 3.75L, Hemoglobin 11.9L, Hematocrit 33L, Mean Corpuscular Volume 89, Mean Corpuscular Hemoglobin 32, Mean Corpuscular H emoglobin Concent 36, Red Cell Distribution Width 14.1, Platelet Count 68L, Mean Platelet Volume 11.7H, Neutrophils (%) (Auto) 77H, Lymphocytes (%) (Auto) 16, Monocytes (%) (Auto) 6, Eosinophils (%) (Auto) 0, Basophils (%) (Auto) 1, Neutrophils # (Auto) 7.4, Lymphocytes # (Auto) 1.6, Monocytes # (Auto) 0.6, Eosinophils # (Auto) 0.0, Basophils # (Auto) 0.1, Sodium Level 135, Potassium Level 3.5L, Chloride Level 108H, Carbon Dioxide Level 19L, Anion Gap 8, Blood Urea Nitrogen 12, Creatinine 1.01, Estimat Glomerular Filtration Rate > 60, BUN/Creatinine Ratio 12, Glucose Level 127H, Calcium Level 7.4L, Corrected Calcium 8.4L, Total Bilirubin 0.5, Aspartate Amino Transf (AST/SGOT) 42H, Alanine Aminotransferase (ALT/SGPT) 78H, Alkaline Phosphatase 183H, Total Protein 4.8L, Albumin 2.8L Microbiology 07/08/19 Blood Culture - Preliminary, Resulted No growth Assessment/Plan Assessment/Plan Assessment/Plan Epigastric abdominal pain nausea vomiting history of ulcer gastritis thrombocytopenia elevated liver enzymes IV Fluids clear liquid diet Protonix 40 mg IV BID, Carafate Feeling better. No surgical intervention at this time, will follow Clinical Quality Measures DVT/VTE Risk/Contraindication: Risk Factor Score Per Nursin RFS Level Per Nursing on Admit: 4+=Very High AVEL GEE DO July 11, 2019 22:01
[2019-07-12 00:06] VITALS: BP 124/73
[2019-07-12 03:35] VITALS: BP 128/74
[2019-07-12 05:12] LABS: BASOPHILS # (AUTO) 0.2 10^3/uL (0.0-0.1); BASOPHILS % (AUTO) 2 % (0-10); EOSINOPHILS # (AUTO) 0.1 10^3/uL (0.0-0.3); EOSINOPHILS % (AUTO) 1 % (0-10); HEMATOCRIT 33 % (40-54); HEMOGLOBIN 11.9 G/DL (13.3-17.7); LYMPHOCYTES # (AUTO) 5.6 X 10^3 (1.0-4.0); LYMPHOCYTES % (AUTO) 58 % (12-44); MEAN CORPUSCULAR HEMOGLOBIN 32 PG (25-34); MEAN CORPUSCULAR HGB CONC 36 G/DL (32-36); MEAN CORPUSCULAR VOLUME 89 FL (80-99); MEAN PLATELET VOLUME 12.4 FL (7.4-10.4); MONOCYTES # (AUTO) 0.7 X 10^3 (0.0-1.0); MONOCYTES % (AUTO) 7 % (0-12); NEUTROPHILS % (AUTO) 31 % (42-75); PLATELET COUNT 93 10^3/uL (130-400); RED CELL DISTRIBUTION WIDTH 13.8 % (10.0-14.5); WHITE BLOOD COUNT 9.6 10^3/uL (4.3-11.0)
[2019-07-12 05:39] LABS: ALANINE AMINOTRANSFERASE 71 U/L (0-55); ALBUMIN 2.6 GM/DL (3.2-4.5); ALKALINE PHOSPHATASE 182 U/L (40-136); BILIRUBIN,TOTAL 0.4 MG/DL (0.1-1.0); BUN/CREATININE RATIO 10; CALCIUM 7.6 MG/DL (8.5-10.1); CARBON DIOXIDE 21 MMOL/L (21-32); CHLORIDE 110 MMOL/L (98-107); CREATININE SERUM 0.99 MG/DL (0.60-1.30); GFR ESTIMATED > 60; GLUCOSE 115 MG/DL (70-105); POTASSIUM 3.2 MMOL/L (3.6-5.0); SODIUM 139 MMOL/L (135-145); TOTAL PROTEIN 4.7 GM/DL (6.4-8.2)
[2019-07-12] MEDS: SUCRALFATE 1 GM (CARAFATE) TAB PO SCH ×2 (05:59→10:34)
[2019-07-12] MEDS ORDERED: KCL 20 MEQ TAB (K-DUR) PO NR (07:15)
[2019-07-12] MEDS: PANTOPRAZOLE 40 MG (PROTONIX) VIAL IV SCH (08:04)
[2019-07-12] MEDS: SENNA W/DOCUSATE (SENOKOT S) TABLET PO SCH (08:07)
[2019-07-12 08:45] VITALS: BP 108/56
[2019-07-12] MEDS ORDERED: DOXYCYCLINE 100 MG (VIBRAMYCIN) TABLET PO SCH (09:00)
[2019-07-12] MEDS: KETOROLAC 30 MG/ML VIAL IVP PRN (10:37)
[2019-07-12] MEDS ORDERED: PANT40TA2 PO (10:55)
[2019-07-12] MEDS ORDERED: SUCR1TAB PO (10:55)
[2019-07-12] MEDS ORDERED: DOXY100T2 PO (10:55)
--- NOTE | 2019-07-12 10:56 | Discharge Summary ---
Discharge Summary Hospital Course Was the Problem List Reviewed?: Yes Problems/Dx: (1) Tick-borne disease (2) Dehydration (3) Elevated procalcitonin (4) Smoker (5) COPD (chronic obstructive pulmonary disease) (6) Thrombocytopenia (7) Nausea & vomiting (8) Epigastric pain Status: Acute Hospital Course Date of Admission: July 10, 2019 at 10:46 Admission Diagnosis : Family Physician/Provider: Aracely Benoit DO Date of Discharge: 07/12/19 Discharge Diagnosis: tick borne illness, dehydration, bronchitis Hospital Course: Pt doing pretty well Potassium a little bit low at 3.2 so I gave him a supplement Goes to [facility] for his discharge medications Pt overall doing much better, I will go ahead and keep him on Protonix and Carafate to decrease gastritis inflammation since he has a history of that and he will be maintained on Doxycycline 100 Mg BID for an additional six days Overall he did pretty well, pain was controlled I restarted all of his home medications and I will see him Thursday at my clinic Labs and Pending Lab Test: Laboratory Tests 07/12/19 04:55: White Blood Count 9.6, Red Blood Count 3.76L, Hemoglobin 11.9L, Hematocrit 33L, Mean Corpuscular Volume 89, Mean Corpuscular Hemoglobin 32, Mean Corpuscular Hemoglobin Concent 36, Red Cell Distribution Width 13.8, Platelet Count 93L, Mean Platelet Volume 12.4H, Neutrophils (%) (Auto) 31L, Lymphocytes (%) (Auto) 58H, Monocytes (%) (Auto) 7, Eosinophils (%) (Auto) 1, Basophils (%) (Auto) 2, Neutrophils # (Auto) 3.0, Lymphocytes # (Auto) 5.6H, Monocytes # (Auto) 0.7, Eosinophils # (Auto) 0.1, Basophils # (Auto) 0.2H, Sodium Level 139, Potassium Level 3.2L, Chloride Level 110H, Carbon Dioxide Level 21, Anion Gap 8, Blood Urea Nitrogen 10, Creatinine 0.99, Estimat Glomerular Filtration Rate > 60, BUN/Creatinine Ratio 10, Glucose Level 115H, Calcium Level 7.6L, Corrected Calcium 8.7, Total Bilirubin 0.4, Aspartate Amino Transf (AST/SGOT) 50H, Alanine Aminotransferase (ALT/SGPT) 71H, Alkaline Phosphatase 182H, Total Protein 4.7L, Albumin 2.6L Microbiology 07/08/19 Blood Culture - Preliminary, Resulted No growth Home Meds Active Reported Xyzal (Levocetirizine Dihydrochloride) 5 Mg Tablet 5 Mg PO DAILY Cyclobenzaprine HCl 10 Mg Tablet 10 Mg PO TID PRN Pregabalin 50 Mg Capsule 50 Mg PO BID Hydroxyzine HCl 25 Mg Tablet 25-50 Mg PO QID PRN Celecoxib 200 Mg Capsule 200 Mg PO DAILY Citalopram HBr (Citalopram Hydrobromide) 20 Mg Tablet 40 Mg PO DAILY TAKES 2 (20MG) TABLETS Multivitamins (Multivitamin) 1 Each Tablet 1 Tab PO DAILY Assessment/Pt Instructions DR Benoit Thursday 500pm Discharge Planning: <30 minutes discharge planning Discharge Instructions Discharge Diet: No Restrictions Discharge Physical Examination Vital Signs Vital Signs Date Time Temp Pulse Resp B/P (MAP) Pulse Ox O2 Delivery O2 Flow Rate FiO2 07/12/19 08:45 36.0 78 18 108/56 (73) 95 Room Air 07/11/19 18:21 95 General Appearance: No Apparent Distress, WD/WN Allergies: Coded Allergies: No Known Drug Allergies (Unverified , 08/11/14) Discharge Summary Date of Admission July 10, 2019 at 10:46 Date of Discharge Discharge Date: July 12, 2019 Admission Diagnosis Assessment: Severe pain with dehydration Cough with negative CXR placed empirically on bronchitis treatment Elevated PCT of uncertain source Thrombocytopenia Severe N/V today prompting Dr Ley consultation h/o gastritis with stomach ulcer Smoker Severe osteoporosis hx Arthritis Depression Anxiety Plan: IV abx IVF Dr Ley consultation Dr Acosta consultation Monitor platelets Discharge Diagnosis Assessment: Severe pain with dehydration improving Cough with negative CXR placed empirically on bronchitis treatment Elevated PCT of uncertain source Thrombocytopenia Severe N/V yesterday prompting Dr Ley consultation he added PPI and Carafate h/o gastritis with stomach ulcer Smoker Severe osteoporosis hx Arthritis Depression Anxiety Tick bites placed on Doxy and ordered tick panel per Dr Acosta Plan: IV abx and add Doxy IV due to high risk for stomach upset in this patient with Doxy PO IVF heplock Dr Ley consultation Dr Acosta consultation Monitor platelets PT DC home tomorrow (1) Dehydration (2) Elevated procalcitonin (3) Smoker (4) COPD (chronic obstructive pulmonary disease) (5) Thrombocytopenia (6) Nausea & vomiting (7) Epigastric pain Status: Acute Clinical Quality Measures DVT/VTE Risk/Contraindication: Risk Factor Score Per Nursin RFS Level Per Nursing on Admit: 4+=Very High ARACELY BENOIT DO July 12, 2019 10:56
[2019-07-12 12:00] VITALS: BP 121/76
[2019-07-12 13:05] VITALS: BP 121/76
== END 2019-07-12 13:05 | disposition home or self-care (01) | DRG 641 ==
LOC: 4TH 17:11 → OBSVTOIN 07-10 10:46
PROVIDERS: ADMIT Internal Medicine; ATTEND Internal Medicine
DX: E86.0 Dehydration (principal); A77.41 Ehrlichiosis chaffeensis [E. chaffeensis]; J40 Bronchitis, not specified as acute or chronic; K29.70 Gastritis, unspecified, without bleeding; D69.6 Thrombocytopenia, unspecified; F17.210 Nicotine dependence, cigarettes, uncomplicated; J44.9 Chronic obstructive pulmonary disease, unspecified; G62.9 Polyneuropathy, unspecified; M19.91 Primary osteoarthritis, unspecified site; M54.9 Dorsalgia, unspecified; F41.9 Anxiety disorder, unspecified; F43.10 Post-traumatic stress disorder, unspecified; F32.9 Major depressive disorder, single episode, unspecified; M81.0 Age-related osteoporosis without current pathological fracture
CPT/HCPCS: 36415; 71046; 80053; 81000; 82150; 82550; 83605; 83615; 83690; 83880; 84145; 85007; 85025; 85027; 85045; 85652; 86618; 86666; 86668; 86757; 87040; 93005; 94760; 99211; G0378

== ENCOUNTER 2021-04-03 11:37 | Emergency (ER) | payer OTHER ==
[~2021-04-03] VITALS: Ht 182 cm; Wt 77.0 kg
[~2021-04-03 11:37] MED LIST changes: +CYCL10TA25 PO; -CYCL10TA9 PO; +DOXY100T2 PO; +LEVO5TAB28 PO; +MULT-567 PO; -MULT1TAB69 PO; -OXYC-465 PO; +OXYC-556 PO; +PANT40TA2 PO; -PANT40TA3 PO; +PANT40TA52 PO; +PREG50CA2 PO; +PREG50CA65 PO; +SUCR1TAB PO; -SULF1TAB35 PO; +SULF1TAB38 PO
--- NOTE | 2021-04-03 12:28 | ED Cough/URI ---
General Chief Complaint: COVID19 Suspect/Confirmed Stated Complaint: COVID +/WEAK Nursing Triage Note: ARRIVED VIA AMB TO ROOM 10. TESTED COVID POS ON THURSDAY. STATES HE HAS BEEN RUNNING A FEVER, FEELS WEAK AND IS ACHY. Source: patient Exam Limitations: no limitations History of Present Illness Date Seen by Provider: Apr 03, 2021 Time Seen by Provider: 12:13 Initial Comments Patient is a 55-year-old male who presents to the emergency department today with a chief complaint of Covid symptoms, states that he tested positive for Covid at home 3 days ago on Thursday. Patient states that his symptoms started on Thursday of last week he just feels terrible. He has had body aches, fever, right ear pain, sore throat, productive cough, shortness of breath with exertion. Chest tightness with breathing and wheezing. Nausea and decreased appetite. Mild diarrhea. No urinary complaints. No rashes joint pain or swelling. He is only been taking Sudafed and Mucinex for his symptoms. He does not take ibuprofen secondary to a history of a stomach ulcer. He has not taken any Ty lenol. He admits to smoking 2 packs of cigarettes a day. He has a history of osteopenia. He tried to go to his primary care physician's office today but they would not see him secondary to the Covid. The last time he saw his PCP was a year ago. All other review of systems reviewed and negative except as stated above. Timing/Duration: constant, week Severity/Quality: moderate, productive cough Prior Episodes/Possible Cause: illness exposure Associated Symptoms: chest pain/soreness, cough, dizziness, fever/chills, headache, muscle aches, nasal congestion, nasal drainage, shortness of breath, sinus infection, sore throat, wheezing, other (syncope) Allergies and Home Medications Allergies Coded Allergies: No Known Drug Allergies (Unverified , 08/11/14) Patient Home Medication List Home Medication List Reviewed: Yes Celecoxib (Celecoxib) 200 Mg Capsule, 200 MG PO DAILY, (Reported) Entered as Reported by: LILIANE LAW on 01/10/16 1430 Citalopram Hydrobromide (Citalopram HBr) 20 Mg Tablet, 40 MG PO DAILY, (Reported) Entered as Reported by: SID MANZO on 12/19/142050 Cyclobenzaprine HCl (Cyclobenzaprine HCl) 10 Mg Tablet, 10 MG PO TID PRN for MUSCLE SPASMS, (Reported) Entered as Reported by: HSAILESH ZELAYA on 07/11/19 0936 Doxycycline Hyclate (Doxycycline Hyclate) 100 Mg Tablet, 100 MG PO BID@ Prescribed by: TOYA HEALY on 07/12/19 1055 Hydroxyzine HCl (Hydroxyzine HCl) 25 Mg Tablet, 25-50 MG PO QID PRN for ANXIETY, (Reported) Entered as Reported by: LILIANE LAW on 01/10/16 1430 Levocetirizine Dihydrochloride (Xyzal) 5 Mg Tablet, 5 MG PO DAILY, (Reported) Entered as Reported by: SHAILESH ZELAYA on 07/11/19 0937 Multivitamin (Multivitamins) 1 Each Tablet, 1 TAB PO DAILY, (Reported) Entered as Reported by: ODILIA CONTRERAS on 12/08/14 0828 Pantoprazole Sodium (Protonix) 40 Mg Tablet.dr, 40 MG PO DAILY Prescribed by: TOYA HEALY on 07/12/19 1055 Pregabalin (Pregabalin) 50 Mg Capsule, 50 MG PO BID, (Reported) Entered as Reported by: SHAILESH ZELAYA on 07/11/19 0936 Sucralfate (Sucralfate) 1 Gm Tablet, 1 GM PO ACHS Prescribed by: TOYA HEALY on 07/12/19 1055 Review of Systems Review of Systems Constitutional: see HPI EENTM: ear pain (right), throat pain Respiratory: cough, phlegm, short of breath Cardiovascular: chest pain ("tihjtness) Gastrointestinal: loss of appetite Genitourinary: no symptoms reported Musculoskeletal: muscle cramps (body aches) Skin: no symptoms reported Psychiatric/Neurological: Headache, Other (syncope) All Other Systems Reviewed Negative Unless Noted: Yes Past Kfzwosg-Dreipo-Utwlmx Hx Immunizations Up To Date Tetanus Booster (TDap): Less than 5yrs PED Vaccines UTD: No Seasonal Allergies Seasonal Allergies: Yes Past Medical History Surgeries: Yes (RIGHT WRIST ORTHOS SURGERY AND LEFT LEG CUCA) Angioplasty, Orthopedic Respiratory: Yes COPD Currently Using CPAP: No Currently Using BIPAP: No Cardiac: No Neuropathy Reproductive Disorders: No Sexually Transmitted Disease: No HIV/AIDS: No Genitourinary: Yes Kidney Stones Gastrointestinal: Yes (5 YEARS AGO GI BLEED) Gastrointestinal Bleed, Ulcer Arthritis, Chronic Back Pain Endocrine: No HEENT: No (BLIND IN RIGHT EYE) Loss of Vision: Right Hearing Impairment: Denies Cancer: No Psychosocial: Yes Anxiety, PTSD, Depression Integumentary: No Blood Disorders: No Adverse Reaction/Blood Tranf: No Family Medical History Arthritis 19 MOTHER Asthma G8 BROTHER Cancer of mouth 19 FATHER Cardiovascular disease 19 FATHER Diabetes mellitus 19 FATHER G8 BROTHER Myocardial infarction 19 FATHER No Pertinent Family Hx Physical Exam Vital Signs - First Documented 04/03/21 11:55 Temp 36.5 Pulse 63 Resp 16 B/P (MAP) 115/82 (93) Pulse Ox 97 O2 Delivery Room Air Capillary Refill : Less Than 3 Seconds Height: 6'0.00" Weight: 172lbs. 0.5oz. [id number]; 23.00 BMI Method:Stated General Appearance: WD/WN, no apparent distress Eyes: Bilateral Eye Normal Inspection, Bilateral Eye PERRL, Bilateral Eye EOMI HEENT: PERRL/EOMI, TMs normal, pharynx normal (oropharynx appears dry) Neck: non-tender, full range of motion, supple Respiratory: lungs clear, normal breath sounds, no respiratory distress, no accessory muscle use, other (oxygen 99% on RA) Cardiovascular: regular rate, rhythm Gastrointestinal: normal bowel sounds, non tender, soft Extremities: normal range of motion, non-tender, normal inspection, no pedal edema, no calf tenderness, normal capillary refill Neurologic/Psychiatric: alert, normal mood/affect, oriented x 3 Skin: normal color, warm/dry Progress/Results/Core Measures Suspected Sepsis SIRS Temperature: Pulse: 63 Respiratory Rate: 16 Laboratory Tests 04/03/21 12:05: White Blood Count 10.4 Blood Pressure 115 /82 Mean: 93 Laboratory Tests 04/03/21 12:05: Creatinine 1.09, Platelet Count 219, Total Bilirubin 0.4 Results/Orders Lab Results Laboratory Tests Test 04/03/21 12:05 Range/Units White Blood Count 10.4 4.3-11.0 10^3/uL Red Blood Count 4.71 4.30-5.52 10^6/uL Hemoglobin 14.9 13.3-17.7 g/dL Hematocrit 44 40-54 % Mean Corpuscular Volume 93 80-99 fL Mean Corpuscular Hemoglobin 32 25-34 pg Mean Corpuscular Hemoglobin Concent 34 32-36 g/dL Red Cell Distribution Width 12.8 10.0-14.5 % Platelet Count 219 130-400 10^3/uL Mean Platelet Volume 10.7 9.0-12.2 fL Immature Granulocyte % (Auto) 0 % Neutrophils (%) (Auto) 73 42-75 % Lymphocytes (%) (Auto) 20 12-44 % Monocytes (%) (Auto) 7 0-12 % Eosinophils (%) (Auto) 0 0-10 % Basophils (%) (Auto) 0 0-10 % Neutrophils # (Auto) 7.6 1.8-7.8 10^3/uL Lymphocytes # (Auto) 2.0 1.0-4.0 10^3/uL Monocytes # (Auto) 0.7 0.0-1.0 10^3/uL Eosinophils # (Auto) 0.0 0.0-0.3 10^3/uL Basophils # (Auto) 0.0 0.0-0.1 10^3/uL Immature Granulocyte # (Auto) 0.0 0.0-0.1 10^3/uL Sodium Level 138 135-145 MMOL/L Potassium Level 4.1 3.6-5.0 MMOL/L Chloride Level 104 98-107 MMOL/L Carbon Dioxide Level 23 21-32 MMOL/L Anion Gap 11 5-14 MMOL/L Blood Urea Nitrogen 14 7-18 MG/DL Creatinine 1.09 0.60-1.30 MG/DL Estimat Glomerular Filtration Rate 81 BUN/Creatinine Ratio 13 Glucose Level 116 H 70-105 MG/DL Calcium Level 9.5 8.5-10.1 MG/DL Corrected Calcium 9.1 8.5-10.1 MG/DL Total Bilirubin 0.4 0.1-1.0 MG/DL Aspartate Amino Transf (AST/SGOT) 17 5-34 U/L Alanine Aminotransferase (ALT/SGPT) 17 0-55 U/L Alkaline Phosphatase 97 40-136 U/L Total Protein 7.8 6.4-8.2 GM/DL Albumin 4.5 3.2-4.5 GM/DL My Orders Orders - JOANNA STAPLES MD Ed Iv/Invasive Line Start (04/03/21 12:22) Cbc With Automated Diff (04/03/21 12:22) Comprehensive Metabolic Panel (04/03/21 12:22) Chest 1 View, Ap/Pa Only (04/03/21 12:22) Acetaminophen Tablet (Tylenol Tablet) (04/03/21 12:30) Ns Iv 1000 Ml (Sodium Chloride 0.9%) (04/03/21 12:30) Covid-19 External Lab Results (04/03/21 12:31) Isolation Central Supply Req (04/03/21 12:31) Medications Given in ED Current Medications Medications Dose Ordered Sig/Robert Route Start Time Stop Time Status Last Admin Dose Admin Acetaminophen 1,000 mg ONCE ONCE PO 04/03/21 12:30 04/03/21 12:31 DC 04/03/21 12:41 1,000 MG Vital Signs/I&O 04/03/21 11:55 Temp 36.5 Pulse 63 Resp 16 B/P (MAP) 115/82 (93) Pulse Ox 97 O2 Delivery Room Air Capillary Refill : Less Than 3 Seconds Blood Pressure Mean: 93 Progress Note : Time: 13:02 Progress Note Patient seen and evaluated, 55-year-old who has had Covid symptoms for the last 6 days, tested positive for days ago. Clinically looks fair. Slightly dehydrated. Basic laboratory studies have been obtained and evaluated, they are reassuring, all within normal limits. Chest x-ray is evaluated no signs of infection. No fluid, infiltrate or bony abnormality. His vital signs are great, he is 99% on room air. Patient is given a gram of Tylenol here in the emergency department as well as a liter of fluids. He is encouraged to drink plenty of fluids at home. I will offer some nausea medicines for home. He is outside the window for any of the antiviral therapies at this time. He is advised to continue to use speo-ixf-qfqbvfi decongestants/cough medications/acetaminophen. He is advised to follow-up with his primary care physician in a week. He verbalized understanding. All questions are sought and answered. Diagnostic Imaging Diagonstic Imaging: Xray Plain Films/CT/US/NM/MRI: chest Comments NAME: RODRIGUEZ MAGANA MED REC#: [id number] PT STATUS: REG ER : 1965 PHYSICIAN: JOANNA STAPLES MD ADMIT DATE: 04/03/21/ER Draft Date of Exam:04/03/21 CHEST 1 VIEW, AP/PA ONLY PATIENT HISTORY: SOB COUGH. TECHNIQUE: Single frontal view of the chest. COMPARISON: 07/09/2019 FINDINGS: The lung volumes are normal. No focal consolidation is seen. No large pleural effusion or pneumothorax is seen. The cardiomediastinal silhouette is normal in size and contour. No acute osseous abnormality is seen. IMPRESSION: No acute pulmonary abnormality seen. Dictated on workstation # [id number] Dict: 04/03/21 1324 Trans: 04/03/21 1325 [id number] Interpreted by: JUAN C NAVAS MD Electronically signed by: Departure Impression Primary Impression: COVID-19 Disposition: 01 HOME, SELF-CARE Condition: Stable Departure-Patient Inst. Decision time for Depature: 12:31 Referrals: TOYA HEALY DO (PCP/Family) Primary Care Physician Patient Instructions: COVID-19 ED Add. Discharge Instructions: Drink plenty of fluids to stay well-hydrated. Continue ewtf-qmt-eimxcgy Mucinex and Sudafed for congestion, cough and phlegm. Extra strength Tylenol 2 tablets every 6 hours with food as needed for fever, body aches and pain. Nausea medicine, Zofran 4 mg every 8 hours as needed. Return to the emergency room for any worsening symptoms, shortness of breath or other emergent concerns. Follow-up with your primary care physician in a week. Scripts Ondansetron (Ondansetron Odt) 4 Mg Tab.rapdis 4 MG PO Q8H PRN for nausea, #20 TAB Prov: JOANNA STAPLES MD 04/03/21 Copy Copies To 1: TOYA HEALY KATHRYN M MD Apr 03, 2021 12:28
[2021-04-03] MEDS ORDERED: NS IV 1000 ML 1,000 ML IV SCH (12:30)
[2021-04-03] MEDS ORDERED: ACETAMINOPHEN 500 MG TAB (TYLENOL) PO ONE (12:30)
[2021-04-03 12:40] LABS: BASOPHILS % (AUTO) 0 % (0-10); EOSINOPHILS % (AUTO) 0 % (0-10); HEMATOCRIT 44 % (40-54); HEMOGLOBIN 14.9 g/dL (13.3-17.7); LYMPHOCYTES % (AUTO) 20 % (12-44); MEAN CORPUSCULAR HEMOGLOBIN 32 pg (25-34); MEAN CORPUSCULAR HGB CONC 34 g/dL (32-36); MEAN CORPUSCULAR VOLUME 93 fL (80-99); MEAN PLATELET VOLUME 10.7 fL (9.0-12.2); MONOCYTES # (AUTO) 0.7 10^3/uL (0.0-1.0); MONOCYTES % (AUTO) 7 % (0-12); NEUTROPHILS # (AUTO) 7.6 10^3/uL (1.8-7.8); NEUTROPHILS % (AUTO) 73 % (42-75); PLATELET COUNT 219 10^3/uL (130-400); WHITE BLOOD COUNT 10.4 10^3/uL (4.3-11.0)
[2021-04-03 12:50] LABS: ALBUMIN 4.5 GM/DL (3.2-4.5); POTASSIUM 4.1 MMOL/L (3.6-5.0)
[2021-04-03 12:52] LABS: CALCIUM 9.5 MG/DL (8.5-10.1)
[2021-04-03 12:53] LABS: TOTAL PROTEIN 7.8 GM/DL (6.4-8.2)
[2021-04-03 12:54] LABS: BILIRUBIN,TOTAL 0.4 MG/DL (0.1-1.0)
[2021-04-03 12:56] LABS: CREATININE SERUM 1.09 MG/DL (0.60-1.30)
--- NOTE | 2021-04-03 13:25 | Diagnostic Imaging Report ---
PATIENT HISTORY: SOB COUGH. TECHNIQUE: Single frontal view of the chest. COMPARISON: 07/09/2019 FINDINGS: The lung volumes are normal. No focal consolidation is seen. No large pleural effusion or pneumothorax is seen. The cardiomediastinal silhouette is normal in size and contour. No acute osseous abnormality is seen. IMPRESSION: No acute pulmonary abnormality seen. Dictated by: Dictated on workstation # [id number]
[2021-04-03 14:52] VITALS: BP 100/67
[2021-04-03] MEDS ORDERED: ONDA4TAB11 PO (14:55)
== END 2021-04-03 14:52 | disposition home or self-care (01) ==
LOC: EDUNIT# 11:37 → ER 11:38
DX: U07.1 COVID-19 (principal); J44.9 Chronic obstructive pulmonary disease, unspecified; F41.9 Anxiety disorder, unspecified; F32.9 Major depressive disorder, single episode, unspecified; Z79.899 Other long term (current) drug therapy
CPT/HCPCS: 36415; 71045; 80053; 85025

== ENCOUNTER 2021-05-23 05:38 | Outpatient (CLI) | payer OTHER ==
[~2021-05-23] VITALS: Ht 182.9 cm; Wt 75.3 kg
[~2021-05-23 05:38] MED LIST changes: +ONDA4TAB11 PO
[2021-05-27] MEDS ORDERED: ACHD5005 PO (13:34)
[2021-05-27] MEDS ORDERED: BUDE10.7 IH (13:34)
[2021-05-27] MEDS ORDERED: ALBU1.25 INH (13:34)
== END 2021-05-27 13:48 | disposition home or self-care (01) ==
LOC: PREOP 05:38
PROVIDERS: ATTEND Surgery
DX: Z01.818 Encounter for other preprocedural examination (principal)

== ENCOUNTER 2021-06-04 11:49 | Day surgery (SDC) | payer OTHER ==
[~2021-06-04] VITALS: Ht 183 cm; Wt 75.3 kg
[~2021-06-04 11:49] MED LIST changes: +ALBU1.25 INH; +BUDE10.7 IH
[2021-06-04] MEDS ORDERED: LACTATED RINGERS 1,000 ML IV ONE (11:56)
[2021-06-04] MEDS ORDERED: LACTATED RINGERS 1,000 ML IV STA (11:58)
[2021-06-04] MEDS ORDERED: HURRICAINE EXT TUBE (BENZOCAINE) XX PRN (12:00)
[2021-06-04 12:20] VITALS: BP 113/94
--- NOTE | 2021-06-04 12:42 | Progress Note-Pre Operative ---
Pre-Operative Progress Note H&P Reviewed The H&P was reviewed, patient examined and no changes noted. Date Seen by Provider: Jun 04, 2021 Time Seen by Provider: 12:41 Date H&P Reviewed: Jun 04, 2021 Time H&P Reviewed: 12:41 Pre-Operative Diagnosis: GERD. Screening colonoscopy. AVEL GEE DO Jun 04, 2021 12:42
[2021-06-04] MEDS ORDERED: MIDAZOLAM 2 MG/2 ML (VERSED) VIAL ONE (13:13)
[2021-06-04] MEDS ORDERED: PROPOFOL INJECTION 50 ML IV ONE (13:13)
[2021-06-04] MEDS ORDERED: proPOfol 200 MG/20 ML (DIPRIVAN) VIAL IV ONE (13:49)
[2021-06-04 14:25] VITALS: BP 113/72
[2021-06-04 14:30] VITALS: BP 111/79
--- NOTE | 2021-06-04 14:32 | Progress Note-Post Operative ---
Post-Operative Progess Note Surgeon (s)/Behavior Support Specialist (s) Surgeon AVEL GEE DO Behavior Support Specialist: none Pre-Operative Diagnosis GERD. Screening colonoscopy. Post-Operative Diagnosis Gastritis. Colon polyps x7. Procedure & Operative Findings Date of Procedure 06/04/21 Procedure Performed/Findings EGD with biopsies. Colonoscopy with hot biopsy polypectomy x5 and snare polypectomy x2. Anesthesia Type per PAPER MACHINE TENDER Estimated Blood Loss Estimated blood loss (mL): none Specimens/Packing Specimens Removed Biopsy of antrum and GE junction. Sigmoid polyp x2. Sigmoid snare x1. Rectal polyp x3. Rectal snare x1. AVEL GEE DO Jun 04, 2021 14:32
[2021-06-04] MEDS ORDERED: PANT40TA2 PO (14:34)
--- NOTE | 2021-06-04 14:34 | Discharge Inst-Simple/Standard ---
Discharge Inst-Standard Discharge Medications New, Converted or Re-Newed RX: Transmitted to Pharmacy Patient Instructions/Follow Up Plan of Care/Instructions/FU: 2 weeks Jil Activity as Tolerated: Yes Discharge Diet: Regular Diet AVEL GEE DO Jun 04, 2021 14:34
[2021-06-04 14:35] VITALS: BP 120/80
--- NOTE | 2021-06-04 14:43 | Anesthesia-General Post-Op ---
MAC Patient Condition Mental Status/LOC: Same as Preop Cardiovascular: Satisfactory Nausea/Vomiting: Absent Respiratory: Satisfactory Pain: Controlled Complications: Absent Post Op Complications Complications None Follow Up Care/Instructions Patient Instructions None needed. Anesthesiology Discharge Order Discharge Order Patient is doing well, no complaints, stable vital signs, no apparent adverse anesthesia problems. No complications reported per nursing. THIERNO ORTEGA CRNA Jun 04, 2021 14:43
[2021-06-04 15:00] VITALS: BP 112/86
--- NOTE | 2021-06-04 20:16 | OPERATIVE REPORT ---
DATE OF SERVICE: 06/04/2021 PREOPERATIVE DIAGNOSES: Chronic gastritis and screening colonoscopy. POSTOPERATIVE DIAGNOSES: Gastritis and colon polyps x7. PROCEDURE: EGD with biopsies, colonoscopy with hot biopsy polypectomy x5 and snare polypectomy x2. SURGEON: Avel Ley DO ANESTHESIA: Per CERTIFIED NOVELL ENGINEER. ESTIMATED BLOOD LOSS: None. COMPLICATIONS: None. INDICATIONS: The patient is a 56-year-old male with chronic gastritis and needing screening colonoscopy. He understands risks and benefits of procedure and wished to proceed. Consent was signed in the chart. DESCRIPTION OF PROCEDURE: The patient was taken to the endoscopy suite, placed in left lateral recumbent position. Timeout was performed. Scope was inserted in mouth, down the esophagus, stomach and into the duodenum without difficulty. No polyps, masses, or ulcerations within the duodenum. Scope was slowly retracted back into the stomach where it was further insufflated. Slight evidence of gastritis present. Biopsy of the antrum was obtained. Scope was retroflexed noting no other pathology. Scope was returned to its normal position, slowly withdrawn to distal esophagus. No polyps, masses, or ulcerations. Biopsy of GE junction was obtained. Scope was slowly retracted back until completely removed, noting no other pathology. Digital rectal exam was performed. No palpable polyps, masses, or ulcerations. Scope was inserted in the rectum and advanced all the way to cecum with minimal difficulty. Prep was adequate. Scope was then slowly retracted back. No polyps, masses, or ulcerations. The cecum, ascending, transverse, descending colon and sigmoid colon, larger polyp, which snare polypectomy was performed. This was obtained for pathology. Two other small polyps were present, which hot biopsy polypectomy was performed. Scope was then continuously retracted back into the rectum where 3 polyps were present, which hot biopsy polypectomy was performed. Fourth polyp was present, which snare polypectomy was performed. Scope was retroflexed noting no other pathology. Scope was returned to its normal position, slowly withdrawn until completely removed. RECOMMENDATIONS: The patient with an area at the rectosigmoid, which was in the distal sigmoid, which was very difficult to visualize the polyp was present, which hot biopsy polypectomy was performed. But due to the size and location, we would reevaluate in 6 months at least with a flexible sigmoidoscopy to make sure it has been eradicated. After that depending on findings, we would go to routine screening guidelines. The patient will follow up on pathology. We will continue on current medications. Job ID: [id number] DocumentID: [id number] Dictated Date: 06/04/2021 14:31:56 Batch Heat Treat Operator Date: 06/04/2021 20:15:36 Dictated By: AVEL LEY DO
== END 2021-06-04 15:15 | disposition home or self-care (01) ==
LOC: ENDO 11:49
PROVIDERS: ATTEND Surgery
DX: Z12.11 Encounter for screening for malignant neoplasm of colon (principal); K29.50 Unspecified chronic gastritis without bleeding; K20.90 Esophagitis, unspecified without bleeding; D12.8 Benign neoplasm of rectum; K62.1 Rectal polyp; K63.5 Polyp of colon; F17.210 Nicotine dependence, cigarettes, uncomplicated

== ENCOUNTER 2021-11-11 08:36 | Emergency (ER) | payer OTHER ==
[~2021-11-11] VITALS: Ht 182 cm; Wt 72.5 kg
[~2021-11-11 08:36] MED LIST changes: +ACET-11 PO; -ACET1TAB43 PO
--- NOTE | 2021-11-11 09:14 | ED Upper Extremity ---
General Chief Complaint: Laceration Stated Complaint: LACERATION ON RT HAND Source: patient Exam Limitations: no limitations History of Present Illness Date Seen by Provider: Nov 11, 2021 Time Seen by Provider: 08:59 Initial Comments Patient to the ER by private conveyance from work with chief complaint that he got his hand caught between an oven door and a cart handling materials. Caused a large flap laceration over his left dorsal hand. He is not having any loss of range of motion nor is he having any numbness or tingling. They could not get the bleeding to stop. He is not on aspirin, Plavix or blood thinners. He follows with Dr. Healy for primary care and takes Lyrica. He has not had a tetanus vaccine in the last 5 years Allergies and Home Medications Allergies Coded Allergies: No Known Drug Allergies (Unverified , 08/11/14) Patient Home Medication List Home Medication List Reviewed: Yes Albuterol Sulfate (Albuterol Sulfate) 1.25 Mg/3 Ml Vial.neb, 1.25 MG INH UD, (Reported) Entered as Reported by: RAFA VELA on 05/27/21 1334 Budesonide/Glycopyr/Formoterol (Breztri Aerosphere Inhaler) 10.7 Gm Hfa.aer.ad, 10.7 GM IH BID, (Reported) Entered as Reported by: RAFA VELA on 05/27/21 1334 Celecoxib (Celecoxib) 200 Mg Capsule, 200 MG PO DAILY, (Reported) Entered as Reported by: LILIANE LAW on 01/10/16 1430 Cephalexin (Cephalexin) 500 Mg Tablet, 500 MG PO TID Prescribed by: EUNICE THORNE on 11/11/21 1019 Citalopram Hydrobromide (Citalopram HBr) 20 Mg Tablet, 40 MG PO DAILY, (Reported) Entered as Reported by: SID MANZO on 12/19/14 205 Doxycycline Hyclate (Doxycycline Hyclate) 100 Mg Tablet, 100 MG PO BID@ Prescribed by: TOYA HEALY on 07/12/19 1055 Hydrocodone/Acetaminophen (Hydrocodone-Acetamin 5-325 mg) 1 Each Tablet, 1 TAB PO Q6H, (Reported) Entered as Reported by: RAFA VELA on 05/27/21 1334 Hydroxyzine HCl (Hydroxyzine HCl) 25 Mg Tablet, 25-50 MG PO QID PRN for ANXIETY, (Reported) Entered as Reported by: LILIANE ALW on 01/10/16 1430 Multivitamin (Multivitamins) 1 Each Tablet, 1 TAB PO DAILY, (Reported) Entered as Reported by: ODILIA CONTRERAS on 12/08/14 0828 Ondansetron (Ondansetron Odt) 4 Mg Tab.rapdis, 4 MG PO Q8H PRN for nausea Prescribed by: JOANNA STAPLES on 04/03/21 1455 Pantoprazole Sodium (Protonix) 40 Mg Tablet.dr, 40 MG PO DAILY Prescribed by: AVEL GEE on 06/04/21 1434 Pregabalin (Pregabalin) 50 Mg Capsule, 50 MG PO BID, (Reported) Entered as Reported by: SHAILESH ZELAYA on 07/11/19 0936 Review of Systems Constitutional: No chills, No fever EENTM: see HPI, no symptoms reported Respiratory: no symptoms reported Cardiovascular: no symptoms reported Gastrointestinal: no symptoms reported All Other Systems Reviewed Negative Unless Noted: Yes Past Cxxpxbe-Aylbyz-Feixhu Hx Patient Social History Tobacco Use?: Yes Tobacco type used: Cigarettes Smoking Status: Current Everyday Smoker Substance use?: No Alcohol Use?: Yes Alcohol Frequency: Once in a while Pt feels they are or have been: No Immunizations Up To Date Tetanus Booster (TDap): Less than 5yrs PED Vaccines UTD: No First/Initial COVID19 Vaccinat: NO Second COVID19 Vaccination Tra: NO Third COVID19 Vaccination Date: NO Seasonal Allergies Seasonal Allergies: Yes Past Medical History Surgery/Hospitalization HX: PMH: DEPRESSION, ALLERGIES, CHRONIC PAIN Surgeries: Yes (WRIST, LEG, MANDIBLE, NOSE- ORTHO BUTTOCKS ABCESS) Angioplasty, Orthopedic Respiratory: Yes COPD Currently Using CPAP: No Currently Using BIPAP: No Cardiac: No Neurological: Yes (bells palsy) Neuropathy Reproductive Disorders: No Sexually Transmitted Disease: No HIV/AIDS: No Genitourinary: Yes Kidney Stones Gastrointestinal: Yes (5 YEARS AGO GI BLEED) Gastrointestinal Bleed, Ulcer Arthritis, Chronic Back Pain Endocrine: No HEENT: No (BLIND IN RIGHT EYE) Loss of Vision: Right Hearing Impairment: Denies Cancer: No Psychosocial: Yes Anxiety, PTSD, Depression Integumentary: No Blood Disorders: No Adverse Reaction/Blood Tranf: No Family Medical History Arthritis 19 MOTHER Asthma G8 BROTHER Cancer of mouth 19 FATHER Cardiovascular disease 19 FATHER Diabetes mellitus 19 FATHER G8 BROTHER Myocardial infarction 19 FATHER No Pertinent Family Hx Physical Exam Vital Signs Vital Signs - First Documented 11/11/21 08:58 Temp 38.6 Pulse 71 Resp 20 B/P (MAP) 137/94 (108) Pulse Ox 97 Capillary Refill : Height, Weight, BMI Height: 6'0.00" Weight: 172lbs. 0.5oz. 78.837915ip; 22.48 BMI Method:Stated General Appearance: WD/WN, mild distress HEENT: PERRL/EOMI, pharynx normal Neck: full range of motion, normal inspection Cardiovascular: normal peripheral pulses, regular rate, rhythm Respiratory: no respiratory distress, no accessory muscle use Hand: normal ROM, Left, laceration (Curvilinear flap laceration over the dorsum of the left hand approximately 6 cm) Neurologic/Psychiatric: no motor/sensory deficits, alert, normal mood/affect Procedures/Interventions Wound Location: Upper Extremities Other Wound Location Left hand dorsal Wound Length (cm): 6 Wound's Depth, Shape: linear (Curvilinear flap), flap, sub Q Wound Explored: clean Irrigated w/ Saline (ccs): 250 Betadine Prep?: Yes Anesthesia: 1% Lidocaine (5) Volume Anesthetic (ccs): 5 Wound Debrided: minimal Suture: Prolene Suture Size: 4-0 Number of Sutures: 8 Layer Closure?: 1 Number Deep Layer Sutures: 0 Sterile Dressing Applied?: Yes Progress/Results/Core Measures Results/Orders My Orders Orders - EUNICE THORNE DiphtCinthia(Acell),Tet Adult (Boostrix (11/11/21 09:15) Lidocaine 1% Inj 20 Ml (Xylocaine 1% Inj (11/11/21 09:15) Lidocaine 1% Inj 10 Ml (Xylocaine 1% Inj (11/11/21 09:19) Hand, Left, 3 Views (11/11/21 10:20) Medications Given in ED Current Medications Medications Dose Ordered Sig/Robert Route Start Time Stop Time Status Last Admin Dose Admin Diphtheria/ Tetanus/Acell Pertussis 0.5 ml ONCE ONCE IM 11/11/21 09:15 11/11/21 09:16 DC 11/11/21 09:21 0.5 ML Lidocaine HCl 10 ml STK-MED ONCE .ROUTE 11/11/21 09:19 11/11/21 09:21 DC 11/11/21 10:00 10 ML Vital Signs/I&O 11/11/21 08:58 Temp 38.6 Pulse 71 Resp 20 B/P (MAP) 137/94 (108) Pulse Ox 97 Progress Progress Note : Time: 09:13 Progress Note Tdap, lidocaine, prophylactic antibiotics and close wound with sutures. Diagnostic Imaging Diagonstic Imaging: Xray Plain Films/CT/US/NM/MRI: hand Comments NAME: RODRIGUEZ MAGANA MED REC#: [id number] PT STATUS: REG ER : 1965 PHYSICIAN: EUNICE THORNE MD ADMIT DATE: 11/11/21/ER Draft Date of Exam:11/11/21 HAND, LEFT, 3 VIEWS INDICATION: Pain status post crush injury. COMPARISON: None FINDINGS: 3 radiographic views of the left hand were obtained. There is deformity involving the distal tip of the tuft of the thumb. This however has a chronic appearance. Otherwise, osseous structures are intact. Joint spaces are maintained. No unexpected radiopaque foreign bodies are seen. IMPRESSION: 1. No acute fracture or dislocation of the left hand. Dictated on workstation # [id number] Dict: 11/11/21 1047 Trans: 11/11/21 1050 [facility] [id number] Interpreted by: DAVID GONZALEZ MD Electronically signed by: Reviewed: Reviewed by Me Departure Impression Primary Impression: Flap laceration of skin Additional Impression: Laceration of hand without foreign body Qualified Codes: S61.412A - Laceration without foreign body of left hand, initial encounter Disposition: 01 HOME, SELF-CARE Condition: Stable Departure-Patient Inst. Decision time for Depature: 10:53 Referrals: TOYA HEALY DO (PCP/Family) Primary Care Physician Patient Instructions: Laceration Repair With Stitches (DC) Add. Discharge Instructions: Keep the wound clean, dressed and dry. You may wash it with regular soap and water. Showers and running water are okay but no submersion or baths until the sutures are out. You may put Vaseline or triple antibiotic ointment over the sutures to keep them from sticking to the dressing. Change the dressing daily or more frequently if it becomes soiled. Cephalexin 3 times a day for 5 days to prevent infection. For swelling you can elevate and gently compress the hand with a dressing. Tylenol and Motrin as necessary for pain. Return to the ER or your doctor in 10 to 14 days to have the sutures removed. All discharge instructions reviewed with patient and/or family. Voiced understanding. Scripts Cephalexin (Cephalexin) 500 Mg Tablet 500 MG PO TID for 5 Days, #15 TAB 0 Refills Prov: EUNICE THORNE 11/11/21 Work/School Note: Work Release Form Date Seen in the Emergency Department: Nov 11, 2021 Return to Work: Nov 13, 2021 Restrictions: Need Release from Doctor Other Restrictions Listed Below: Do not submerse left hand until sutures are out. Restrictions: Minimize use of left hand until 11/14/2021 EUNICE THORNE Nov 11, 2021 09:14
[2021-11-11] MEDS ORDERED: TETANUS,DIPTH,PERTUSS P/F (BOOSTRIX) 0.5 ML VIAL IM ONE (09:15)
[2021-11-11] MEDS ORDERED: LIDOCAINE 1% INJ 20 ML VIAL INJ ONE (09:15)
[2021-11-11] MEDS ORDERED: LIDOCAINE 1% INJ 10 ML VIAL ONE (09:19)
[2021-11-11] MEDS ORDERED: CEPH500T PO (10:19)
--- NOTE | 2021-11-11 10:50 | Diagnostic Imaging Report ---
INDICATION: Pain status post crush injury. COMPARISON: None FINDINGS: 3 radiographic views of the left hand were obtained. There is deformity involving the distal tip of the tuft of the thumb. This however has a chronic appearance. Otherwise, osseous structures are intact. Joint spaces are maintained. No unexpected radiopaque foreign bodies are seen. IMPRESSION: 1. No acute fracture or dislocation of the left hand. Dictated by: Dictated on workstation # [id number]
[2021-11-11 10:59] VITALS: BP 137/94
== END 2021-11-11 10:59 | disposition home or self-care (01) ==
LOC: EDUNIT# 08:36 → ER 08:39
DX: S61.412A Laceration without foreign body of left hand, initial encounter (principal); F17.210 Nicotine dependence, cigarettes, uncomplicated; Z23 Encounter for immunization; Z28.310 Unvaccinated for COVID-19; W23.1XXA Caught, crushed, jammed, or pinched between stationary objects, initial encounter
CPT/HCPCS: 12002; 73130; 90715

== ENCOUNTER 2021-11-24 12:50 | Emergency (ER) | payer OTHER ==
[~2021-11-24 12:50] MED LIST changes: +CEPH500T PO
== END 2021-11-24 13:00 | disposition home or self-care (01) ==
LOC: EDUNIT# 12:50 → ER 12:52
DX: Z48.02 Encounter for removal of sutures (principal)

== ENCOUNTER 2022-01-13 05:42 | Outpatient (CLI) | payer OTHER ==
[~2022-01-13] VITALS: Ht 182.9 cm; Wt 67.6 kg
[2022-01-13] MEDS ORDERED: LEVO5TAB28 PO (13:36)
[2022-01-13] MEDS ORDERED: PREG150C PO (13:36)
[2022-01-13] MEDS ORDERED: [UNRECOGNIZED DRUG - OTHER] PO (13:42)
== END 2022-01-13 13:49 ==
LOC: PREOP 05:42
PROVIDERS: ATTEND Surgery
DX: Z01.818 Encounter for other preprocedural examination (principal)

== ENCOUNTER 2022-01-21 08:25 | Day surgery (SDC) | payer OTHER ==
[~2022-01-21] VITALS: Ht 182.9 cm; Wt 67.6 kg
[~2022-01-21 08:25] MED LIST changes: +PREG150C PO; +[UNRECOGNIZED DRUG - OTHER] PO
[2022-01-21] MEDS ORDERED: LACTATED RINGERS 1,000 ML IV STA (08:28)
[2022-01-21 08:40] VITALS: BP 105/70
[2022-01-21] MEDS ORDERED: PROPOFOL INJECTION 50 ML IV ONE (09:22)
[2022-01-21 09:50] VITALS: BP 71/40
--- NOTE | 2022-01-21 09:50 | Discharge Inst-Simple/Standard ---
Discharge Inst-Standard Patient Instructions/Follow Up Plan of Care/Instructions/FU: Follow up in [address] Ley. Activity as Tolerated: Yes Discharge Diet: No Restrictions, Regular Diet AVEL LEY DO Jan 21, 2022 09:50
[2022-01-21 09:55] VITALS: BP 83/50
[2022-01-21 10:10] VITALS: BP 90/44
[2022-01-21 10:22] VITALS: BP 90/44
--- NOTE | 2022-01-21 13:42 | Anesthesia-General Post-Op ---
MAC Patient Condition Mental Status/LOC: Same as Preop Cardiovascular: Satisfactory Nausea/Vomiting: Absent Respiratory: Satisfactory Pain: Controlled Complications: Absent Post Op Complications Complications None Follow Up Care/Instructions Patient Instructions None needed. Anesthesiology Discharge Order Discharge Order Patient is doing well, no complaints, stable vital signs, no apparent adverse anesthesia problems. No complications reported per nursing. YVONNE BROCK CRNA Jan 21, 2022 13:42
--- NOTE | 2022-01-21 20:12 | OPERATIVE REPORT ---
DATE OF SERVICE: 01/21/2022 PREOPERATIVE DIAGNOSIS: History of polyps. POSTOPERATIVE DIAGNOSIS: Rectosigmoid polyps. PROCEDURE: Flexible sigmoidoscopy with polypectomy x2. SURGEON: Avel Ley DO. ANESTHESIA: Per CONSTRUCTION DRILLER. ESTIMATED BLOOD LOSS: None. COMPLICATIONS: None. INDICATIONS: The patient is a 56-year-old male needing a flexible sigmoidoscopy for reevaluation of polyps. He understands risks and benefits of procedure and wishes to proceed. Consent was signed in chart. DESCRIPTION OF PROCEDURE: The patient was taken to endoscopy suite, placed in left lateral recumbent position. Timeout was performed. A digital rectal exam was performed. No palpable polyps, masses or ulcerations. Scope was inserted into the rectum and passed through the sigmoid colon. Prep was adequate. Scope was then slowly retracted back. No polyps, masses, ulcerations were noted in the sigmoid. At the rectosigmoid junction, a couple of small polyps were present, which hot biopsy polypectomy was performed. Scope was then continuously retracted back in the rectum and inserted and retracted multiple times, noting no other pathology. Scope was slowly retracted back until completely remove. The patient tolerated the procedure well without any complications, taken to recovery room in stable condition. RECOMMENDATIONS: The patient will follow up on pathology. The patient will need a repeat colonoscopy in 4 years due to the last colonoscopy being almost a year ago. Any problems before that be seen at that time. Job ID: [id number] DocumentID: [id number] Dictated Date: 01/21/2022 09:50:32 Mill Control Operator Date: 01/21/2022 20:10:00 Dictated By: AVEL ELY DO
== END 2022-01-21 10:15 | disposition home or self-care (01) ==
LOC: ENDO 08:25
PROVIDERS: ATTEND Surgery
DX: Z12.11 Encounter for screening for malignant neoplasm of colon (principal); K63.5 Polyp of colon; Z86.010 Personal history of colon polyps; F17.210 Nicotine dependence, cigarettes, uncomplicated; Z28.310 Unvaccinated for COVID-19